=== PATIENT | male | born 1975 | race Caucasian/White ===

== ENCOUNTER 2017-04-12 00:51 | Emergency (ER) | payer BC ==
[2017-04-12] MEDS ORDERED: ASPIRIN 81 MG CHEWABLE TABLETS PO ONE (01:16)
--- NOTE | 2017-04-12 01:16 | PDOC ---
History of Present Illness - General Chief Complaint: Palpitations Stated Complaint: HEART PALPITATION - History of Present Illness Beta Arleen given by EMS (Core Measure): No Beta Arleen taken at Home (Core Measure): Yes (50 mg po) Past History - Past Medical History Allergies/Adverse Reactions: Allergies Allergy/AdvReac Type Severity Reaction Status Date / Time No Known Allergies Allergy Verified 11/07/15 08:02 Home Medications: Ambulatory Orders Apixaban [Eliquis -] 5 mg PO BID #60 tablet 01/08/15 Flecainide Acetate [Flecainide Acetate -] 100 mg PO BID #60 tablet 01/08/15 Metoprolol Succinate [Toprol XL -] 12.5 mg PO DAILY #0 01/08/15 Anemia: No Asthma: No Cancer: No Cardiac Disorders: Yes (a-fib) CVA: No COPD: No CHF: No Dementia: No Diabetes: No GI Disorders: No Disorders: Yes (renal calculi) HTN: Yes Hypercholesterolemia: No Kidney Stones: Yes Seizures: No Thyroid Disease: No - Surgical History Cardiac Surgery: No (cardioverted (2 shocks)) Orthopedic Surgery: Yes - Immunization History Immunization Up to Date: Yes - Psycho/Social/Smoking Cessation Hx Anxiety: No Suicidal Ideation: No Smoking Status: No Smoking History: Never smoked Have you smoked in the past 12 months: No Number of Cigarettes Smoked Daily: 0 Cigars Per Day: 0 Hx Alcohol Use: No Drug/Substance Use Hx: No Substance Use Type: None Hx Substance Use Treatment: No Cardiac Specific PMH - Complaint Specific PMHX Pacemaker: No *DC/Admit/Observation/Transfer Diagnosis at time of Disposition: [facility] - Discharge Dispostion Disposition: LEFT BEFORE R[facility] - Referrals Referrals: STAFF,NOT ON [Primary Care Provider] -
== END 2017-04-12 01:32 | disposition left against medical advice (07) ==
LOC: JER 00:51
DX: Z53.21 Procedure and treatment not carried out due to patient leaving prior to being seen by health care provider (principal)
CPT/HCPCS: 99281-25

== ENCOUNTER 2019-12-05 06:54 | Inpatient (IN) | payer SELFPAY ==
--- NOTE | 2019-12-05 07:32 | PDOC ---
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 EMS report BP 60s systolic, HR 180s with an rhythm of SVT. Pt unstable and shocked once with rhythm reverted to NSR. Pt reports being woken up out of sleep at 5 20 am with stated symptoms. Reports complete relief of symptoms after shock and feels much better. Pt states he has been in his normal state of health recently, no recent travel, sick contacts, infectious symptoms. Denies current CP, SOB, palpitations, abdominal pain, changes in bowel or bladder habits. Pt states he sees Dr. Luna in Cardiology, states he was on Eliquis over 2 years ago for A fib, no longer on AC. Past History - Past Medical History Allergies/Adverse Reactions: Allergies Allergy/AdvReac Type Severity Reaction Status Date / Time No Known Allergies Allergy Verified 12/14/19 00:40 Home Medications: Ambulatory Orders Apixaban [Eliquis -] 5 mg PO BID #30 tablet 12/07/19 Losartan Potassium [Cozaar -] 25 mg PO DAILY tablet 12/07/19 Sotalol HCl [Betapace -] 80 mg PO BID 30 Days #60 tablet 12/07/19 Anemia: No Asthma: No Cancer: No Cardiac Disorders: Yes (a-fib) CVA: No COPD: No CHF: No Dementia: No Diabetes: No GI Disorders: No Disorders: Yes (renal calculi) HTN: Yes Hypercholesterolemia: No Kidney Stones: Yes Seizures: No Thyroid Disease: No - Surgical History Cardiac Surgery: No (cardioverted (2 shocks)) Orthopedic Surgery: Yes - Immunization History Immunization Up to Date: Yes - Psycho Social/Smoking Cessation Hx Smoking Status: No Smoking History: Never smoked Have you smoked in the past 12 months: No Number of Cigarettes Smoked Daily: 0 Cigars Per Day: 0 Hx Alcohol Use: No Drug/Substance Use Hx: No Substance Use Type: None Hx Substance Use Treatment: No Review of Systems - Review of Systems Constitutional: Yes: Symptoms Reported HEENTM: Yes: Symptoms Reported Respiratory: Yes: Symptoms reported Cardiac (ROS): Yes: Symptoms Reported ABD/GI: Yes: Symptoms Reported : Yes: Symptoms Reported Musculoskeletal: Yes: Symptoms Reported Integumentary: Yes: Symptoms Reported Neurological: Yes: Symptoms reported *Physical Exam - Vital Signs Last Vital Signs Temp Pulse Resp BP Pulse Ox 97.4 F L 75 18 173/103 H 96 12/05/19 07:01 12/05/19 07:01 12/05/19 07:01 12/05/19 07:01 12/05/19 07:01 - Physical Exam General Appearance: Yes: Nourished, Appropriately Dressed. No: Apparent Distress HEENT: positive: EOMI Neck: positive: Supple. negative: Rigid Respiratory/Chest: positive: Lungs Clear, Normal Breath Sounds. negative: Respiratory Distress, Accessory Muscle Use, Rapid RR, Crackles, Rales, Rhonchi, Stridor, Wheezing Cardiovascular: positive: Regular Rhythm, Regular Rate, S1, S2. negative: Edema , JVD, Murmur Vascular Pulses: Dorsalis-Pedis (R): 4+, Doralis-Pedis (L): 4+ Gastrointestinal/Abdominal: positive: Flat, Soft. 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 EMS report BP 60s systolic, HR 180s with an rhythm of SVT. Pt unstable and shocked once with rhythm reverted to NSR. Pt reports being woken up out of sleep at 5 20 am with stated symptoms. Reports complete relief of symptoms after shock and feels much better. Pt states he has been in his normal state of health recently, no recent travel, sick contacts, infectious symptoms. Denies current CP, SOB, palpitations, abdominal pain, changes in bowel or bladder habits. Pt states he sees Dr. Luna in Cardiology, states he was on Eliquis over 2 years ago for A fib, no longer on AC. 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 Pt to be admitted Pt accepted to Tele obs Discharge - Discharge Information Problems reviewed: Yes Clinical Impression/Diagnosis: Palpitations, WPW (Rcwaq-Zylcrjhit-Evmli syndrome), Paroxysmal atrial fibrillation Condition: Stable Disposition: HOME - Admission Yes - Follow up/Referral - Patient Discharge Instructions - Post Discharge Activity
--- NOTE | 2019-12-05 07:47 | PDOC ---
Attending Attestation - Resident Resident Name: Keanu Villatoro - ED Attending Attestation I have performed the following: I have examined & evaluated the patient, The case was reviewed & discussed with the resident, I agree w/resident's findings & plan, Exceptions are as noted - HPI HPI: 43 yo M HTN, pafib, WPW BIBEMS after he had sudden onset of severe cp, palpitations, dizziness. EMS found to have SVT on EKG, shocked him en route, which converted him to sinus rhythm. Pt is known to Dr. Luna, who follows him for WPW. - Physicial Exam PE: GENERAL: Awake, alert, and fully oriented, in no acute distress HEAD: No signs of trauma EYES: PERRLA, EOMI, sclera anicteric, conjunctiva clear ENT: Auricles normal inspection, hearing grossly normal, nares patent, oropharynx clear without exudates. Moist mucosa NECK: Normal ROM, supple, no lymphadenopathy, JVD, or masses LUNGS: Breath sounds equal, clear to auscultation bilaterally. No wheezes, and no crackles HEART: Regular rate and rhythm, normal S1 and S2, no murmurs, rubs or gallops ABDOMEN: Soft, nontender, normoactive bowel sounds. No guarding, no rebound. No masses EXTREMITIES: Normal range of motion, no edema. No clubbing or cyanosis. No cords, erythema, or tenderness NEUROLOGICAL: Cranial nerves II through XII grossly intact. Normal speech, normal gait. Motor and sensation intact SKIN: Warm, dry, normal turgor, no rashes or lesions noted. - Medical Decision Making Pt currently asymptomatic, well-appearing. EKG NSR. Awaiting labs including trop. D/w cardiology, will evaluate.
[2019-12-05 07:58] LABS: BASO % 0.8 % (0-2.0); HEMATOCRIT 44.2 % (35.4-49); LYMPH % 31.8 % (8-40); MCH 29.3 pg (25.7-33.7); MCHC 33.9 g/dl (32.0-35.9); MEAN CELL VOLUME 86.4 fl (80-96); MEAN PLT VOLUME 8.9 fl (7.5-11.1); MONO % 8.1 % (3.8-10.2); NEUT % 58.3 % (42.8-82.8); PLATELET COUNT 235 K/MM3 (134-434); RBC 5.11 M/mm3 (4.00-5.60); RDW 14.5 % (11.9-15.9); WHITE BLOOD COUNT 6.5 K/mm3 (4.0-10.0)
[2019-12-05 08:14] LABS: INR 1.02 (0.83-1.09)
[2019-12-05 08:23] LABS: ALBUMIN 3.9 g/dl (3.4-5.0); BILIRUBIN,TOTAL 0.6 mg/dL (0.2-1); BLOOD UREA NITROGEN 12.2 mg/dL (7-18); CALCIUM 9.1 mg/dL (8.5-10.1); CREATININE 1.2 mg/dL (0.55-1.3); MAGNESIUM 2.4 mg/dL (1.8-2.4); POTASSIUM 4.3 mmol/L (3.5-5.1); TOT PROT 7.7 g/dl (6.4-8.2)
[2019-12-05 08:26] LABS: PHOSPHOROUS 2.4 mg/dL (2.5-4.9)
[2019-12-05] MEDS ORDERED: metoPROLOL SUCCINATE 25 MG TAB.SR.24H (FP) PO ONE ×2 (10:29→18:00)
[2019-12-05] MEDS ORDERED: LABETALOL HCL 5 MG/1 ML (100MG/20 ML VIAL) IVPUSH ONE (10:29)
--- NOTE | 2019-12-05 10:32 | CON.CARD ---
Consult Consult Specialty:: Cardiology Referred by:: Emergency Medicine Reason for Consultation:: Rapid afib post DCCV - History of Present Illness Chief Complaint: Recurrent chest pain, palpitations History of Present Illness: Patient is a 43 year old male with underlying history of paroxysmal AF , WPW on Apixaban and Flecainide and history of HTN and hypercholesterolemia last visit 03/10/2017 presented for sudden onset of severe cp, palpitations, dizziness, dyspnea. EMS found to have hemodynamically unstable SVT on EKG, shocked him en route, which converted him to sinus rhythm with abolition of sxs. - History Source History Provided By: Patient Limitations to Obtaining History: No Limitations - Past Medical History Cardio/Vascular: Yes: AFIB (Paroxysmal since .), HTN, Hyperlipdemia ( ) Renal/: Yes: Renal Calculi - Alcohol/Substance Use Hx Alcohol Use: No History of Substance Use: reports: None - Smoking History Smoking history: Never smoked Have you smoked in the past 12 months: No Aproximately how many cigarettes per day: 0 - Social History ADL: Independent History of Recent Travel: No Home Medications - Allergies Allergies/Adverse Reactions: Allergies Allergy/AdvReac Type Severity Reaction Status Date / Time No Known Allergies Allergy Verified 11/07/15 08:02 - Home Medications Home Medications: Ambulatory Orders Apixaban [Eliquis -] 5 mg PO BID #60 tablet 01/08/15 Flecainide Acetate [Flecainide Acetate -] 100 mg PO BID #60 tablet 01/08/15 Metoprolol Succinate [Toprol XL -] 12.5 mg PO DAILY #0 01/08/15 Review of Systems - Review of Systems Cardiovascular: reports: Chest Pain, Palpitations, Shortness of Breath Neurological: reports: Dizziness Vital Signs: Vital Signs Temperature 97.4 F L 12/05/19 07:01 Pulse Rate 71 12/05/19 09:15 Respiratory Rate 18 12/05/19 09:15 Blood Pressure 197/112 H 12/05/19 09:15 O2 Sat by Pulse Oximetry (%) 98 12/05/19 09:15 Constitutional: Yes: No Distress, Calm Neck: Yes: Supple Respiratory: Yes: Regular, CTA Bilaterally Gastrointestinal: Yes: Normal Bowel Sounds, Soft Cardiovascular: Yes: Regular Rate and Rhythm Heart Sounds: Yes: S1, S2 Edema: No - Other Data Labs, Other Data: CBC, BMP 12/05/19 07:15 12/05/19 07:15 INR, PTT INR 1.02 (0.83-1.09) 12/05/19 07:15 Troponin, BNP 12/05/19 07:15 Troponin I 0.03 Troponin, BNP 12/05/19 07:15 Troponin I 0.03 NSR @ 78 IVCD Ejection Fraction %: LVEF > or = 40 % Imaging - Results Chest X-ray: Report Reviewed (NAD) Problem List - Problems (1) Palpitations Code(s): R00.2 - PALPITATIONS (2) Paroxysmal atrial fibrillation Code(s): I48.0 - PAROXYSMAL ATRIAL FIBRILLATION (3) HLD (hyperlipidemia) Code(s): E78.5 - HYPERLIPIDEMIA, UNSPECIFIED Qualifiers: Hyperlipidemia type: unspecified Qualified Code(s): E78.5 - Hyperlipidemia , unspecified (4) HTN (hypertension) Code(s): I10 - ESSENTIAL (PRIMARY) HYPERTENSION Qualifiers: Hypertension type: essential hypertension Qualified Code(s): I10 - Essential (primary) hypertension (5) Rapid atrial fibrillation Code(s): I48.91 - UNSPECIFIED ATRIAL FIBRILLATION (6) Demand ischemia Code(s): I24.8 - OTHER FORMS OF ACUTE ISCHEMIC HEART DISEASE Assessment/Plan 1. Recurrent paroxysmal AF/flutter now in sinus rhythm post DCCV 2. Demand ischemia 3. HTN 4. Hypercholesterolemia 5. Elevated TSH PLAN: 1. Continue ASA 81 qd given low risk score 2. Continue Flecainide 100 bid for now and increase Toprol XL 50 qd, if continues to have recurrence of AF, may consider switching back to Sotalol. 3. If AF recurs or persistent, ablation may be considered 4. Check T3, free T4, f/u echo 5. Agree with observation. Thank you for consultative opportunity
[2019-12-05] MEDS ORDERED: LABETALOL HCL 5 MG/1 ML (200MG/40ML VIAL) IVPB ONE (11:15)
[2019-12-05] MEDS ORDERED: METOPROLOL TARTRATE 25 MG TABLET (FP) ONE (11:20)
--- NOTE | 2019-12-05 11:54 | EKG ---
Test Reason : Blood Pressure : / mmHG Vent. Rate : 078 BPM Atrial Rate : 078 BPM P-R Int : 198 ms QRS Dur : 124 ms QT Int : 384 ms P-R-T Axes : 046 -08 029 degrees QTc Int : 437 ms NORMAL SINUS RHYTHM NON-SPECIFIC INTRA-VENTRICULAR CONDUCTION DELAY BORDERLINE ECG WHEN COMPARED WITH ECG OF 08-NOV-2015 09:14, NO SIGNIFICANT CHANGE WAS FOUND Confirmed by MARIO GONZALES, ELLIOTT ([id number]) on 12/05/2019 11:54:25 AM Referred By: Confirmed By:ELLIOTT MARTIN MD
--- NOTE | 2019-12-05 15:23 | ECHO ---
Name: BARRETT CONTRERAS Exam:Adult Echocardiogram Study Date: 12/05/2019 02:42 PM Age: 43 yrs Height: 73 in Weight: 215 lb BSA: 2.2 m2 MMode/2D Measurements & Calculations IVSd: 1.1 cm Ao root diam: 3.1 cm LVIDd: 4.7 cm LA dimension: 3.5 cm LVIDs: 3.4 cm LVPWd: 1.2 cm LVPWs: 1.5 cm EDV(Teich): 104.9 ml ESV(Teich): 47.4 ml LVOT diam: 2.3 cm LAV (MOD-bp): 62.0 ml RV S Isidoro: 9.2 cm/sec Doppler Measurements & Calculations MV E max isidoro: 66.6 cm/sec Ao V2 max: 125.6 cm/sec MV A max isidoro: 53.8 cm/sec Ao max P.3 mmHg MV E/A: 1.2 JULIETTE(V,D): 2.8 cm2 MV dec time: 0.23 sec LV V1 max P.8 mmHg MR max isidoro: 551.6 cm/sec LV V1 max: 83.4 cm/sec MR max P.7 mmHg TR max isidoro: 184.6 cm/sec PA V2 max: 106.6 cm/sec TR max P.6 mmHg PA max P.6 mmHg Med Peak E' Isidoro: 5.3 cm/sec Med E/e': 12.7 Lat Peak E' Isidoro: 6.9 cm/sec Lat E/e': 9.6 Procedure A complete two-dimensional transthoracic echocardiogram was performed (2D, M-mode, Doppler and color flow Doppler). Left Ventricle The left ventricle is normal in size. Left ventricular systolic function is mildly reduced. Ejection Fraction = 45-50%. There is mild global hypokinesis of the left ventricle. Right Ventricle The right ventricle is normal in size and function. Atria Normal left and right atrial size and function. Mitral Valve There is no mitral regurgitation noted. Tricuspid Valve There is trace tricuspid regurgitation. There was insufficient TR detected to calculate RV systolic p ressure. Aortic Valve The aortic valve is trileaflet. No hemodynamically significant valvular aortic stenosis. No aortic regurgitation is present. Pulmonic Valve There is no pulmonic valvular regurgitation. Great Vessels The aortic root is normal size. Pericardium/Pleura There is no pericardial effusion. Interpretation Summary Left ventricular systolic function is mildly reduced. There is mild global hypokinesis of the left ventricle. The right ventricle is normal in size and function. There is trace tricuspid regurgitation. MD Jose Foster 12/05/2019 03:23 PM
--- NOTE | 2019-12-05 17:25 | HP ---
Admitting History and Physical - Primary Care Physician PCP: Zara Pope - Admission Chief Complaint: palpitation/chest pain/lightheadedness History of Present Illness: woke up this am around 5.30 with severe palpitations, lightheadedness, chest pain and some dyspnea. took his flecainide and metoprolol immediately and called 911. ems found him in SVT with hypotension ; dc cardioverted him en route. he returned to normal sinus rhythm. since then BP has been elevated. clinically he feels well, no chest pain, no palpitations, no dyspnea. describes similar episode about a month ago, that resolved spontaneously. has been compliant with his medication, denies recent illness. History Source: Patient Limitations to Obtaining History: No Limitations - Past Medical History Cardiovascular: Yes: AFIB (Paroxysmal since .), HTN, Hyperlipdemia ( ) Renal/: Yes: Renal Calculi - Smoking History Smoking history: Never smoked Have you smoked in the past 12 months: No Aproximately how many cigarettes per day: 0 - Alcohol/Substance Use Hx Alcohol Use: No History of Substance Use: reports: None - Social History Usual Living Arrangement: Yes: With Spouse ADL: Independent History of Recent Travel: No Home Medications - Allergies Allergies/Adverse Reactions: Allergies Allergy/AdvReac Type Severity Reaction Status Date / Time No Known Allergies Allergy Verified 11/07/15 08:02 - Home Medications Home Medications: Ambulatory Orders Apixaban [Eliquis -] 5 mg PO BID #60 tablet 01/08/15 Flecainide Acetate [Flecainide Acetate -] 100 mg PO BID #60 tablet 01/08/15 Metoprolol Succinate [Toprol XL -] 12.5 mg PO DAILY #0 01/08/15 Home Medications (free text): has not been on eliquis for years. takes baby asa intermittently Family Medical History Family Hx Cardiac Disorders: Mother (HTN) Review of Systems - Review of Systems Constitutional: reports: No Symptoms Eyes: reports: No Symptoms HENT: reports: No Symptoms Neck: reports: No Symptoms Cardiovascular: reports: No Symptoms Respiratory: reports: No Symptoms Gastrointestinal: reports: No Symptoms Genitourinary: reports: No Symptoms Musculoskeletal: reports: No Symptoms Integumentary: reports: No Symptoms Neurological: reports: No Symptoms Endocrine: reports: No Symptoms Hematology/Lymphatic: reports: No Symptoms Psychiatric: reports: No Symptoms Physical Examination Vital Signs: Vital Signs Temperature 98.8 F 12/05/19 16:10 Pulse Rate 63 12/05/19 16:10 Respiratory Rate 18 12/05/19 16:10 Blood Pressure 163/95 12/05/19 16:10 O2 Sat by Pulse Oximetry (%) 99 12/05/19 16:10 Constitutional: Yes: Well Nourished, No Distress, Calm Eyes: Yes: Conjunctiva Clear, EOM Intact HENT: Yes: Normocephalic Neck: Yes: Trachea Midline Cardiovascular: Yes: Regular Rate and Rhythm Respiratory: Yes: CTA Bilaterally Gastrointestinal: Yes: Normal Bowel Sounds, Soft Musculoskeletal: Yes: WNL Extremities: Yes: WNL Edema: No Peripheral Pulses WNL: Yes Integumentary: Yes: WNL Neurological: Yes: WNL ...Motor Strength: WNL Psychiatric: Yes: WNL Labs: CBC, BMP 12/05/19 07:15 12/05/19 07:15 Abnormal Lab Results 12/05/19 12/05/19 12/05/19 07:15 07:15 10:07 Anion Gap 5 L Phosphorus 2.4 L Alkaline Phosphatase 136 H Troponin I 0.30 H TSH 9.20 H D Imaging - Results Chest X-ray: Report Reviewed EKG: Report Reviewed Other: Report Reviewed (echo) Problem List - Problems (1) Demand ischemia Code(s): I24.8 - OTHER FORMS OF ACUTE ISCHEMIC HEART DISEASE (2) Palpitations Code(s): R00.2 - PALPITATIONS (3) Paroxysmal atrial fibrillation Code(s): I48.0 - PAROXYSMAL ATRIAL FIBRILLATION (4) HLD (hyperlipidemia) Code(s): E78.5 - HYPERLIPIDEMIA, UNSPECIFIED Qualifiers: Hyperlipidemia type: unspecified Qualified Code(s): E78.5 - Hyperlipidemia , unspecified (5) HTN (hypertension) Code(s): I10 - ESSENTIAL (PRIMARY) HYPERTENSION Qualifiers: Hypertension type: essential hypertension Qualified Code(s): I10 - Essential (primary) hypertension Assessment/Plan flecainide 100 mg po bid metoprolol 50 asa 81 mg [id number] score is 1 monitor overnight trend troponin-likely demand ischemia consult appreciated
[2019-12-05] MEDS ORDERED: FLECAINIDE ACETATE 100 MG TABLET PO SCH ×2 (22:00)
[2019-12-05] MEDS ORDERED: APIXABAN 5 MG TABLET ONE (22:32)
[2019-12-05] MEDS: SOTALOL HCL 80 MG TABLET (FP) PO SCH (22:59)
[2019-12-05] MEDS: APIXABAN 5 MG TABLET PO SCH (22:59)
--- NOTE | 2019-12-06 08:49 | PN ---
Progress Note (short form) - Note Progress Note: CBC, BMP troponin downtrending 12/05/19 07:15 12/05/19 07:15 Vital Signs Period Temp Pulse Resp BP Sys/Singh Pulse Ox Last 24 Hr 98.4 F-99.0 F 50-72 15-18 134-197/72-112 96-99 s1s2 rrr lungs cta abd soft NT, pos.bs no edema no complaints, feels well SVT sp DCCV in ems parox afib HTN echo showed mild cardiomyopathy d/w d.Liam reload with sotalol, monitor for 48 hours eliquis cozaar for bp and cmp tentative dc tomorrow afternoon Problem List - Problems (1) Demand ischemia Code(s): I24.8 - OTHER FORMS OF ACUTE ISCHEMIC HEART DISEASE (2) Palpitations Code(s): R00.2 - PALPITATIONS (3) Paroxysmal atrial fibrillation Code(s): I48.0 - PAROXYSMAL ATRIAL FIBRILLATION (4) HLD (hyperlipidemia) Code(s): E78.5 - HYPERLIPIDEMIA, UNSPECIFIED Qualifiers: Hyperlipidemia type: unspecified Qualified Code(s): E78.5 - Hyperlipidemia , unspecified (5) HTN (hypertension) Code(s): I10 - ESSENTIAL (PRIMARY) HYPERTENSION Qualifiers: Hypertension type: essential hypertension Qualified Code(s): I10 - Essential (primary) hypertension
--- NOTE | 2019-12-06 09:54 | PN ---
Progress Note, Physician History of Present Illness: Denies recurrence of symptomatic PAF with RVR now on sotalol. - Current Medication List Current Medications: Active Medications Apixaban (Eliquis -) 5 mg PO BID [facility] Last Admin: 12/05/19 22:59 Dose: 5 mg Losartan Potassium (Cozaar -) 25 mg PO DAILY [facility] Sotalol HCl (Betapace -) 80 mg PO BID [facility] Last Admin: 12/05/19 22:59 Dose: 80 mg - Objective Vital Signs: Vital Signs Temperature 98.8 F 12/06/19 06:06 Pulse Rate 50 L 12/06/19 06:06 Respiratory Rate 15 12/06/19 06:06 Blood Pressure 134/85 12/06/19 06:06 O2 Sat by Pulse Oximetry (%) 99 12/06/19 06:06 Constitutional: Yes: No Distress, Calm, Thin Neck: Yes: Supple Cardiovascular: Yes: Regular Rate and Rhythm Respiratory: Yes: Regular, CTA Bilaterally Gastrointestinal: Yes: Normal Bowel Sounds, Soft Edema: No Labs: CBC, BMP 12/05/19 07:15 12/05/19 07:15 INR, PTT INR 1.02 (0.83-1.09) 12/05/19 07:15 - ....Imaging EKG: Report Reviewed (SB @ 51 min criteria LVH QTc 425 msec Tele: No recurrence of PAF) Problem List - Problems (1) Palpitations Code(s): R00.2 - PALPITATIONS (2) Paroxysmal atrial fibrillation Code(s): I48.0 - PAROXYSMAL ATRIAL FIBRILLATION (3) HLD (hyperlipidemia) Code(s): E78.5 - HYPERLIPIDEMIA, UNSPECIFIED Qualifiers: Hyperlipidemia type: unspecified Qualified Code(s): E78.5 - Hyperlipidemia , unspecified (4) HTN (hypertension) Code(s): I10 - ESSENTIAL (PRIMARY) HYPERTENSION Qualifiers: Hypertension type: essential hypertension Qualified Code(s): I10 - Essential (primary) hypertension (5) Rapid atrial fibrillation Code(s): I48.91 - UNSPECIFIED ATRIAL FIBRILLATION (6) Demand ischemia Code(s): I24.8 - OTHER FORMS OF ACUTE ISCHEMIC HEART DISEASE (7) Systolic dysfunction without heart failure Code(s): I51.89 - OTHER ILL-DEFINED HEART DISEASES Assessment/Plan 12/05/2019 Echo: Mildly decreased LV EF 45-50%, normal RV size and fxn, tr TR. 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 Given structural heart disease, will need to d/c flecanide and change Toprol XL to sotalol 80 bid with monitor QTc for 2 days, start losartan 25 qd. Change ASA to Eliquis 5 bid. 1. Recurrent paroxysmal AF/flutter now in sinus rhythm post DCCV 2. Demand ischemia 3. HTN heart disease 4. Hypercholesterolemia 5. Elevated TSH PLAN: 1. Changed ASA 81 qd to Eliquis 5 bid given mild cardiomyopathy 2. Changed Flecainide 100 bid to sotalol 80 bid with check QTc and losartan 25 qd given mild cardiomyopathy 3. If AF recurs or persistent despite sotalol, ablation may be considered 4. Check T3, free T4, trops downtrending 5. D/c planning in AM, emphasized importance of compliance with medications and f/u
[2019-12-06] MEDS: APIXABAN 5 MG TABLET PO SCH ×2 (10:00→21:16)
[2019-12-06] MEDS ORDERED: ASPIRIN 81 MG CHEWABLE TABLETS PO SCH (10:00)
[2019-12-06] MEDS: LOSARTAN POTASSIUM 25 MG TABLET PO SCH (10:00)
[2019-12-06] MEDS: SOTALOL HCL 80 MG TABLET (FP) PO SCH ×2 (10:53→21:16)
--- NOTE | 2019-12-06 13:17 | EKG ---
Test Reason : Blood Pressure : / mmHG Vent. Rate : 051 BPM Atrial Rate : 051 BPM P-R Int : 186 ms QRS Dur : 114 ms QT Int : 462 ms P-R-T Axes : 010 -11 001 degrees QTc Int : 425 ms SINUS BRADYCARDIA MINIMAL VOLTAGE CRITERIA FOR LVH, MAY BE NORMAL VARIANT NONSPECIFIC ST ABNORMALITY WHEN COMPARED WITH ECG OF 05-DEC-2019 18:23, NO SIGNIFICANT CHANGE WAS FOUND Confirmed by HAROON ERICKSON MD ([id number]) on 12/06/2019 1:17:28 PM Referred By: OLGAN CABRAL Confirmed By:HAROON ERICKSON MD
--- NOTE | 2019-12-06 13:46 | EKG ---
Test Reason : Blood Pressure : / mmHG Vent. Rate : 071 BPM Atrial Rate : 071 BPM P-R Int : 182 ms QRS Dur : 114 ms QT Int : 418 ms P-R-T Axes : 006 -09 019 degrees QTc Int : 454 ms NORMAL SINUS RHYTHM NORMAL ECG WHEN COMPARED WITH ECG OF 05-DEC-2019 12:17, NO SIGNIFICANT CHANGE WAS FOUND Confirmed by HAROON ERICKSON MD ([id number]) on 12/06/2019 1:46:18 PM Referred By: Confirmed By:HAROON ERICKSON MD
--- NOTE | 2019-12-06 13:51 | EKG ---
Test Reason : Blood Pressure : / mmHG Vent. Rate : 071 BPM Atrial Rate : 071 BPM P-R Int : 184 ms QRS Dur : 110 ms QT Int : 388 ms P-R-T Axes : 048 000 014 degrees QTc Int : 421 ms NORMAL SINUS RHYTHM NONSPECIFIC INTRAVENTRICULAR CONDUCTION DEFECT WHEN COMPARED WITH ECG OF 05-DEC-2019 07:05, NO SIGNIFICANT CHANGE WAS FOUND Confirmed by HAROON ERICKSON MD ([id number]) on 12/06/2019 1:50:39 PM Referred By: Confirmed By:HAROON ERICKSON MD
[2019-12-06 16:45] VITALS: BMI 28.1
[2019-12-07 07:08] VITALS: TEMP 97.5
[2019-12-07 08:08] VITALS: BP 124/61
--- NOTE | 2019-12-07 09:16 | PN ---
Progress Note, Physician Chief Complaint: Pt A&Ox3; asymptomatic. History of Present Illness: Patient is a 43 [facility] [place] [facility] 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 EMS found to have hemodynamically unstable SVT on EKG, shocked him en route, which converted him to sinus rhythm with abolition of sxs. - Current Medication List Current Medications: Active Medications Apixaban (Eliquis -) 5 mg PO BID [facility] Last Admin: 12/06/19 21:16 Dose: 5 mg Losartan Potassium (Cozaar -) 25 mg PO DAILY [facility] Last Admin: 12/06/19 10:00 Dose: 25 mg Sotalol HCl (Betapace -) 80 mg PO BID [facility] Last Admin: 12/06/19 21:16 Dose: 80 mg - Objective Vital Signs: Vital Signs Temperature 97.5 F L 12/07/19 08:05 Pulse Rate 52 L 12/07/19 08:05 Respiratory Rate 18 12/07/19 08:05 Blood Pressure 124/61 12/07/19 08:05 O2 Sat by Pulse Oximetry (%) 96 12/07/19 08:00 Constitutional: Yes: Well Nourished, No Distress Eyes: Yes: WNL HENT: Yes: WNL Neck: Yes: WNL Cardiovascular: Yes: Regular Rate and Rhythm Respiratory: Yes: WNL Gastrointestinal: Yes: WNL ...Rectal Exam: Yes: Deferred Genitourinary: Yes: WNL Breast(s): Yes: WNL Musculoskeletal: Yes: WNL Extremities: Yes: WNL Edema: No Peripheral Pulses WNL: Yes Integumentary: Yes: WNL Neurological: Yes: WNL ...Motor Strength: WNL Psychiatric: Yes: WNL Labs: CBC, BMP 12/05/19 07:15 12/05/19 07:15 INR, PTT INR 1.02 (0.83-1.09) 12/05/19 07:15 - ....Imaging Chest X-ray: Image Reviewed EKG: Image Reviewed (NSR; normal QTC) Problem List - Problems (1) Overweight (BMI 25.0-29.9) Code(s): E66.3 - OVERWEIGHT (2) Paroxysmal atrial fibrillation Assessment/Plan: Sotalol restarted at 80 mg bid (mild LV dysfunction-->discontinue flecainide). On losartan 25 mg daily. On apixaban. Electrolytes WNL. Telemetry: NSR; sinus bradycardia to 39 bpm overnight. Await EKG: if QTC not prolonged, pt may be followed as outpatient. Code(s): I48.0 - PAROXYSMAL ATRIAL FIBRILLATION (3) WPW (Pgwac-Jznytolee-Vmtyd syndrome) Assessment/Plan: see "PAF". Code(s): I45.6 - PRE-EXCITATION SYNDROME (4) HLD (hyperlipidemia) Assessment/Plan: Markedly elevated LDL cholesterol in 2018; await repeat levels. TFTs WNL. Start statin if needed. Pt has lost 30 lbs in the past year by changing diet; he plans to increase daily exercise. Code(s): E78.5 - HYPERLIPIDEMIA, UNSPECIFIED Qualifiers: Hyperlipidemia type: unspecified Qualified Code(s): E78.5 - Hyperlipidemia , unspecified (5) HTN (hypertension) Code(s): I10 - ESSENTIAL (PRIMARY) HYPERTENSION Qualifiers: Hypertension type: essential hypertension Qualified Code(s): I10 - Essential (primary) hypertension
[2019-12-07] MEDS: APIXABAN 5 MG TABLET PO SCH (09:47)
[2019-12-07] MEDS: LOSARTAN POTASSIUM 25 MG TABLET PO SCH (09:48)
[2019-12-07] MEDS: SOTALOL HCL 80 MG TABLET (FP) PO SCH (09:49)
--- NOTE | 2019-12-07 13:14 | EKG ---
Test Reason : Blood Pressure : / mmHG Vent. Rate : 056 BPM Atrial Rate : 056 BPM P-R Int : 162 ms QRS Dur : 102 ms QT Int : 420 ms P-R-T Axes : 042 -09 -05 degrees QTc Int : 405 ms SINUS BRADYCARDIA OTHERWISE NORMAL ECG WHEN COMPARED WITH ECG OF 06-DEC-2019 09:00, NO SIGNIFICANT CHANGE WAS FOUND Confirmed by ELLIOTT MARTIN MD ([id number]) on 12/07/2019 1:13:52 PM Referred By: Augustine AGUIRRE Confirmed By:ELLIOTT MARTIN MD
[2019-12-07 14:30] VITALS: PULSE 59
--- NOTE | 2019-12-10 08:29 | DS ---
Physical Examination Vital Signs: Vital Signs Temperature 97.5 F L 12/07/19 08:05 Pulse Rate 59 L 12/07/19 14:00 Respiratory Rate 18 12/07/19 08:05 Blood Pressure 124/61 12/07/19 08:05 O2 Sat by Pulse Oximetry (%) 96 12/07/19 08:00 Labs: CBC, BMP 12/05/19 07:15 12/05/19 07:15 Discharge Summary Problems reviewed: Yes Reason For Visit: PALPITATIONS,MELCHOR PARKINSONS WHITE PATTERN Hospital Course: 43 yo man with h/o parox.afib and HTN admitted after SVT sp DCCV in ems serial cardiac enzymes shoiwed slight bump c/w demand ischemia, trended down echo showed mild cardiomyopathy cardiac medications were adjusted reloaded with sotalol, monitored for 48 hours started hesham gomez for bp and cmp will need to follow up as oupt Condition: Stable - Instructions Diet, Activity, Other Instructions: Cardiac diet. Activity as tolerated. Referrals: Zara Pope MD [Primary Care Provider] - Disposition: HOME - Home Medications Comprehensive Discharge Medication List: Ambulatory Orders Apixaban [Eliquis -] 5 mg PO BID #60 tablet 01/08/15 Apixaban [Eliquis -] 5 mg PO BID #30 tablet 12/07/19 Losartan Potassium [Cozaar -] 25 mg PO DAILY tablet 12/07/19 Sotalol HCl [Betapace -] 80 mg PO BID 30 Days #60 tablet 12/07/19
== END 2019-12-07 15:32 | disposition home or self-care (01) | DRG 201 ==
LOC: JER 06:54 → JERBED 13:56 → OBSVTOIN 12-06 08:48 → J4W 12-06 14:32
PROVIDERS: ADMIT Internal Medicine; ATTEND Internal Medicine
DX: I47.1 Supraventricular tachycardia (principal); I45.6 Pre-excitation syndrome; R07.89 Other chest pain; I10 Essential (primary) hypertension; R00.2 Palpitations; E78.00 Pure hypercholesterolemia, unspecified; I24.8 Other forms of acute ischemic heart disease; I42.8 Other cardiomyopathies; I48.92 Unspecified atrial flutter; R00.1 Bradycardia, unspecified; I11.9 Hypertensive heart disease without heart failure; E66.3 Overweight; Z68.25 Body mass index [BMI] 25.0-25.9, adult; Z87.442 Personal history of urinary calculi
CPT/HCPCS: 36415; 71045-TC-FY; 80053; 80061; 82550; 83605; 83721; 83735; 84100; 84439; 84443; 84480; 84484; 85025; 85610; 85730; 86850; 86900; 86901; 93005; 93010; 93306-TC; 99285-25; G0378

== ENCOUNTER 2019-12-14 00:19 | Inpatient (IN) | payer OTHER ==
--- NOTE | 2019-12-14 00:27 | PDOC ---
Attending Attestation - Resident Resident Name: Oj Justice - ED Attending Attestation I have performed the following: I have examined & evaluated the patient, The case was reviewed & discussed with the resident, I agree w/resident's findings & plan - HPI HPI: 12/14/19 01:13 Pt comes with WPW and paroxysmal afib hitory; today presents with tachycardia 12/14/19 01:14 Pt was at a family reunion and may be stressed from that as per niece. Pt doesn't smoke or drink alcohol or use drugs, He is complaint with his sotalol and all meds, He was here 2 weeks ago. - Physicial Exam PE: 12/14/19 01:14 Tachy irregularly irregulat No chest pain No SOB; lungs CTA bilat abd soft NT ND no flank pain no pitting edema of the legs. - Medical Decision Making 12/14/19 01:13 IV started by myself; procainamide 2000mg IV load at 50mg/min. 1000 mg going now Another 1000mg coming from pharmacy 1L NSS running. 12/14/19 03:15 EKG#1 afib; ?WPW; PVCs EKG#2 afib; ?WPW EKG#3 NSR Pt will remain on procainamide drip and he will be admitted to the ICU Likely needs ablation of his heart accessory pathway Labs normal cardiac enzyme normal
--- NOTE | 2019-12-14 00:29 | PDOC ---
History of Present Illness - General Chief Complaint: Chest Pain Stated Complaint: CHEST PAIN Time Seen by Provider: 12/14/19 00:24 History Source: Patient Exam Limitations: No Limitations, Language Barrier - History of Present Illness Initial Comments: Liam Sow is a 43 yo M w a hx of WPW recently started on Sotalol and apixaban, paroxysmal AF, HTN, HCL, obesity recently discharged from the hospital one week ago who presents to the ER with chest pain, lightheadedness, and palpitations. Upon presentation to the ER the patient was in SVT w/ aberent response at a rate of 160. He was promptly placed on a monitor, defibrilater pads placed on patient, and a procainamide drip was started. Patient states earlier today while he was at a [employer] party around 12:10 in the morning. He denies drinking alcohol or using other substances at the alliance party. Pain is now resolved in the ER and the patient denies current SOB, CP, or other symptoms. He presented bc last time he felt chest pain like this he had a mild CA. Cards: Cheryl PCP: Zara Pope PSH: None reported Allergies: NKA, NKDA Social Hx: Denies smoking, drinking, or other substance usage. Past History - Past Medical History Allergies/Adverse Reactions: Allergies Allergy/AdvReac Type Severity Reaction Status Date / Time No Known Allergies Allergy Verified 12/14/19 00:40 Home Medications: Ambulatory Orders Apixaban [Eliquis -] 5 mg PO BID #30 tablet 12/07/19 Losartan Potassium [Cozaar -] 25 mg PO DAILY tablet 12/07/19 Sotalol HCl [Betapace -] 80 mg PO BID 30 Days #60 tablet 12/07/19 Anemia: No Asthma: No Cancer: No Cardiac Disorders: Yes (Paroxysmal A-Fib) CVA: No COPD: No CHF: No Dementia: No Diabetes: No GI Disorders: No Disorders: Yes (Renal stones) HTN: Yes Hypercholesterolemia: Yes Kidney Stones: Yes Seizures: No Thyroid Disease: Yes (Elevated TSH) - Surgical History Cardiac Surgery: No (Cardioverted (2 shocks) - 12/06/2019) Orthopedic Surgery: Yes - Immunization History Immunization Up to Date: Yes - Psycho Social/Smoking Cessation Hx Smoking Status: No Smoking History: Never smoked Have you smoked in the past 12 months: No Number of Cigarettes Smoked Daily: 0 Cigars Per Day: 0 Hx Alcohol Use: No Drug/Substance Use Hx: No Substance Use Type: None Hx Substance Use Treatment: No Review of Systems - Review of Systems Able to Perform ROS?: Yes Comments:: CONSTITUTIONAL: Absent: fever, no chills, no fatigue EYES: Absent: visual changes ENT: Absent: ear pain, no sore throat CARDIOVASCULAR: Present: chest pain, palpitations RESPIRATORY: Absent: cough, no SOB GI: Absent: abdominal pain, no nausea, no vomiting, no constipation, no diarrhea GENITOURINARY: Absent: dysuria, no frequency, no hematuria MUSKULOSKELETAL: Absent: back pain, no arthralgia, no myalgia SKIN: Absent: rash NEURO: Absent: headache *Physical Exam - Physical Exam GENERAL: Well-appearing, well-nourished. Moderate distress. HEENT: Normocephalic, atraumatic. PERRL, EOM intact. CARDIOVASCULAR: Tachycardic rate, irregular rhythm. Normal S1, S2. PULMONARY: No evidence of respiratory distress. Lungs clear to auscultation bilaterally. No wheezing, rales or rhonchi. ABDOMEN: Soft, non-distended, non-tender. EXTREMITIES: Normal ROM in all four extremities. No gross deformities. SKIN: Warm, dry. No rash NEUROLOGICAL: No focal neurological deficits. ED Treatment Course - LABORATORY CBC & Chemistry Diagram: 12/14/19 00:46 12/14/19 00:46 Medical Decision Making - Medical Decision Making Liam Sow is a 43 yo M w a hx of WPW recently started on Sotalol and apixaban, paroxysmal AF, HTN, HCL, obesity recently discharged from the hospital one week ago who presents to the ER with chest pain, lightheadedness, and palpitations. Upon presentation to the ER the patient was in SVT w/ aberent response at a rate of 160. He was promptly placed on a monitor, defibrilater pads placed on patient, and a procainamide drip was started. Patient states earlier today while he was at a [employer] party around 12:10 in the morning. He denies drinking alcohol or using other substances at the alliance party. Pain is now resolved in the ER and the patient denies current SOB, CP, or other symptoms. He presented bc last time he felt chest pain like this he had a mild CA. 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 Plan: Chest pain workup with labs, defibrilator pads placed, IVF bolus given, procainamide drip started, Cardiology consulted Labs: Trop negative Repeat EKG: NS rate 67, narrow complexes with delta waves, normal axis, no hypertrophy, no ST elevations or depressions, QTc 435 Disposition: ICU bc he is on a procainamide drip Discharge - Discharge Information Problems reviewed: Yes Clinical Impression/Diagnosis: Chest pain Qualifiers: Chest pain type: unspecified Qualified Code(s): R07.9 - Chest pain, unspecified Condition: Stable - Admission Yes - Follow up/Referral - Patient Discharge Instructions - Post Discharge Activity
[2019-12-14] MEDS ORDERED: SODIUM CHLORIDE 1,000 ML IV STA (00:34)
[2019-12-14] MEDS ORDERED: ASPIRIN 81 MG CHEWABLE TABLETS PO ONE (00:34)
[2019-12-14 00:42] VITALS: BMI 34.2
[2019-12-14] MEDS ORDERED: ASPIRIN 81 MG CHEWABLE TABLETS ONE (00:47)
[2019-12-14] MEDS ORDERED: PROCAINAMIDE HCL 1,000 MG in DEXTROSE 5%-WATER - 48 ML IVPB ONE ×3 (00:51→01:08)
[2019-12-14] MEDS ORDERED: SOTALOL HCL 80 MG TABLET (FP) PO ONE (01:03)
[2019-12-14] MEDS ORDERED: PROCAINAMIDE HCL IVPB SCH (01:30)
[2019-12-14] MEDS ORDERED: WATER IVPB SCH (01:30)
[2019-12-14] MEDS ORDERED: DEXTROSE 5% IVPB SCH (01:30)
[2019-12-14 02:05] LABS: BASO % 0.8 % (0-2.0); EOS % 0.8 % (0-4.5); HEMATOCRIT 46.6 % (35.4-49); LYMPH % 37.1 % (8-40); MCH 29.7 pg (25.7-33.7); MCHC 34.4 g/dl (32.0-35.9); MEAN CELL VOLUME 86.5 fl (80-96); MEAN PLT VOLUME 9.1 fl (7.5-11.1); MONO % 9.3 % (3.8-10.2); PLATELET COUNT 270 K/MM3 (134-434); RBC 5.39 M/mm3 (4.00-5.60); RDW 14.1 % (11.9-15.9)
[2019-12-14 02:33] LABS: ALBUMIN 3.8 g/dl (3.4-5.0); BILIRUBIN,TOTAL 0.4 mg/dL (0.2-1); BLOOD UREA NITROGEN 16.3 mg/dL (7-18); CALCIUM 8.8 mg/dL (8.5-10.1); CREATININE 1.1 mg/dL (0.55-1.3); POTASSIUM 3.6 mmol/L (3.5-5.1); TOT PROT 7.8 g/dl (6.4-8.2)
[2019-12-14 03:11] LABS: INR 1.18 (0.83-1.09); PROTHROMBIN TIME (PATIENT) 13.9 SEC (9.7-13.0)
[2019-12-14 03:13] LABS: ACTIVATED PTT 35.8 SECONDS (25.2-36.5)
--- NOTE | 2019-12-14 03:38 | CONSULT ---
Consultation: REQUESTING PROVIDER: CONSULT REQUEST: We have been asked to medically evaluate this patient for Wollf Parkinson White syndrome on procainamide drip. HISTORY OF PRESENT ILLNESS: 43 y.o. M PMH HTN, A-fib on eliquis, HLD. recent admission 12/05-12/10/2019 for chest pain found to have SVTs s/p dc cardioversion by EMS. Patient presents today from home, says he was lying in bed & felt sudden onset palpitations & 2/10 chest pain. When he came to ED pt was found to be in a-fib w/ RVR, tachy to 160s, delta waves seen; procainamide drip initiated w/ resolution of tachycardia. On last admission the patient was started on eliquis, sotalol (flecainide & ASA d/c'd). The patient recently followed up w/ outpatient echocardiograph tech Dr. Luna 3 days ago and as per patient has been well controlled on new medication regimen. REVIEW OF SYSTEMS: chest pain, palpitations, irregular heart rate PHYSICAL EXAMINATION Vital Signs - 24 hr 12/14/19 12/14/19 12/14/19 00:25 00:30 01:00 Temperature 98.0 F Pulse Rate 138 H Pulse Rate [ 141 H Left Radial] Respiratory 22 H 17 Rate Blood Pressure 170/100 Blood Pressure 159/99 [Right Arm] O2 Sat by Pulse 98 98 100 Oximetry (%) 12/14/19 01:30 Temperature Pulse Rate Pulse Rate [ 71 Left Radial] Respiratory 18 Rate Blood Pressure Blood Pressure 150/93 [Right Arm] O2 Sat by Pulse 97 Oximetry (%) GENERAL: Awake, alert, and fully oriented, in no acute distress. HEENT: NCAT. No JVD. LUNGS: Breath sounds equal, clear to auscultation bilaterally. No wheezes, and no crackles. No accessory muscle use. HEART: Irregular rate and rhythm, normal S1 and S2 without murmurs. ABDOMEN: Soft, nontender, not distended, normoactive bowel sounds. EXTREMITIES: no peripheral edema PSYCHIATRIC: Cooperative. Good eye contact. Appropriate mood and affect. SKIN: Warm, dry Laboratory Results - last 24 hr 12/14/19 12/14/19 12/14/19 00:46 00:46 00:46 WBC 9.0 RBC 5.39 Hgb 16.0 Hct 46.6 MCV 86.5 MCH 29.7 MCHC 34.4 RDW 14.1 Plt Count 270 MPV 9.1 Absolute Neuts (auto) 4.7 Neutrophils % 52.0 Lymphocytes % 37.1 Monocytes % 9.3 Eosinophils % 0.8 Basophils % 0.8 Nucleated RBC % 0 PT with INR 13.90 H INR 1.18 H PTT (Actin FS) 35.8 Sodium Potassium Chloride Carbon Dioxide Anion Gap BUN Creatinine Est GFR (CKD-EPI)AfAm Est GFR (CKD-EPI)NonAf Random Glucose Calcium Magnesium Total Bilirubin AST ALT Alkaline Phosphatase Creatine Kinase 107 Troponin I < 0.02 Total Protein Albumin 12/14/19 00:46 WBC RBC Hgb Hct MCV MCH MCHC RDW Plt Count MPV Absolute Neuts (auto) Neutrophils % Lymphocytes % Monocytes % Eosinophils % Basophils % Nucleated RBC % PT with INR INR PTT (Actin FS) Sodium 140 Potassium 3.6 Chloride 105 Carbon Dioxide 28 Anion Gap 7 L BUN 16.3 Creatinine 1.1 Est GFR (CKD-EPI)AfAm 93.47 Est GFR (CKD-EPI)NonAf 80.64 Random Glucose 92 Calcium 8.8 Magnesium 2.0 Total Bilirubin 0.4 AST 34 ALT 36 Alkaline Phosphatase 146 H Creatine Kinase Troponin I Total Protein 7.8 Albumin 3.8 Current Medications Apixaban (Eliquis -) 5 mg PO BID [facility] Chlorhexidine Gluconate (Hibiclens For Decolonization -) 1 applic TP HS [facility] Procainamide HCl 2,000 mg/ (Dextrose) 500 mls @ 30 mls/hr IVPB TITR [facility]; Protocol Last Admin: 12/14/19 01:56 Dose: 2 mg/min, 30 mls/hr Losartan Potassium (Cozaar -) 25 mg PO DAILY [facility] Mupirocin (Bactroban Ointment (For Decolonization) -) 1 applic NS BID [facility] Stop: 12/19/19 09:59 Sotalol HCl (Betapace -) 80 mg PO BID [facility] ASSESSMENT/PLAN: 43 y.o. M PMH HTN, A-fib on eliquis, HLD. recent admission 12/05-12/10/2019 for chest pain now presenting w/ WPW syndrome w/ A-fib and chest pain. 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 Delta waves seen in leads II, III,V3 ,V4. qtc 410. 2nd ekg d one 1hr later showing NSR, persisten delta waves pr interval 168. -continuing home meds: sotalol 80mg BID, losartan 25mg daily -Eliquis 5mg BID for a-fib -On procainamide drip for WPW -f/u AM EKG -BPs 150s/90s- continue tele monitoring -trop neg x1, trend -echo 12/05/2019 showed EF 45-50%, mild cardiomyopathy -ER discussed case w/ Dr. Wheeler --advised to c/w procainamide drip #Pulm -Saturating well on RA -no acute issues #GI -isolated elevated alk phos 146 continue to monitor -f/u ggt -f/u AM labs #PPX -Eliquis 5mg BID #FENLTD -no standing fluids -trend lytes replete prn -NPO; as per prior cardio notes possible ablation if uncontrolled -peripheral line Dispo: We will continue to follow the patient until procainamide drip titrated down. Thank you for this consultative opportunity. Visit type - Emergency Visit Emergency Visit: Yes ED Registration Date: 12/14/19 Care time: The patient presented to the Emergency Department on the above date and was hospitalized for further evaluation of their emergent condition. - New Patient This patient is new to me today: Yes Date on this admission: 01/24/20 - Critical Care Critical Care patient: Yes Total Critical Care Time (in minutes): 45 Critical Care Statement: The care of this patient involved high complexity decision making to prevent further life threatening deterioration of the patient's condition and/or to evaluate & treat vital organ system(s) failure or risk of failure. ATTENDING PHYSICIAN STATEMENT I saw and evaluated the patient. I reviewed the resident's note and discussed the case with the resident. I agree with the resident's findings and plan as documented. SUBJECTIVE: OBJECTIVE: ASSESSMENT AND PLAN:
--- NOTE | 2019-12-14 04:25 | HP ---
Admitting History and Physical - Primary Care Physician PCP: Zara Pope - Admission Chief Complaint: Chest Pain, Palpitations, SOB History of Present Illness: This is a 43 y/o man with a significant PMHx of WPW (recently started on Sotalol and apixaban), Paroxysmal Afib, HTN, HLD, Obesity. recently discharged from the hospital one week ago for Palpitations, Chest Pain. Who presents to the ED with chest pain, lightheadedness, and palpitations. Upon presentation to the ED the patient was in SVT w/ aberrant response at a rate of 160. He was promptly placed on a monitor, defibrillator pads placed on patient, and a Procainamide drip was started. Patient states earlier today while he was at a [employer] around 12:10 in the morning. He denies drinking alcohol or using other substances at the [employer]. Pain is now resolved in the ER and the patient denies current SOB, CP, or other symptoms. He presented bc last time he felt chest pain like this he had a mild MT. History Source: Patient Limitations to Obtaining History: No Limitations - Past Medical History Cardiovascular: Yes: AFIB (Paroxysmal since .), HTN, Hyperlipdemia ( ) Renal/: Yes: Renal Calculi - Smoking History Smoking history: Never smoked Have you smoked in the past 12 months: No Aproximately how many cigarettes per day: 0 - Alcohol/Substance Use Hx Alcohol Use: No History of Substance Use: reports: None - Social History ADL: Independent History of Recent Travel: No Home Medications - Allergies Allergies/Adverse Reactions: Allergies Allergy/AdvReac Type Severity Reaction Status Date / Time No Known Allergies Allergy Verified 12/14/19 00:40 - Home Medications Home Medications: Ambulatory Orders Apixaban [Eliquis -] 5 mg PO BID #30 tablet 12/07/19 Losartan Potassium [Cozaar -] 25 mg PO DAILY tablet 12/07/19 Sotalol HCl [Betapace -] 80 mg PO BID 30 Days #60 tablet 12/07/19 Review of Systems - Review of Systems Constitutional: reports: No Symptoms Eyes: reports: No Symptoms HENT: reports: No Symptoms Neck: reports: No Symptoms Cardiovascular: reports: Chest Pain, Palpitations, Shortness of Breath Respiratory: reports: SOB Gastrointestinal: reports: No Symptoms Genitourinary: reports: No Symptoms Breasts: reports: No Symptoms Reported Musculoskeletal: reports: No Symptoms Integumentary: reports: No Symptoms Neurological: reports: No Symptoms Endocrine: reports: No Symptoms Hematology/Lymphatic: reports: No Symptoms Psychiatric: reports: No Symptoms Pain Intensity: 6 Physical Examination Vital Signs: Vital Signs Temperature 98.0 F 12/14/19 00:25 Pulse Rate 71 12/14/19 01:30 Respiratory Rate 18 12/14/19 01:30 Blood Pressure 150/93 12/14/19 01:30 O2 Sat by Pulse Oximetry (%) 97 12/14/19 01:30 Constitutional: Yes: Well Nourished, No Distress, Calm Eyes: Yes: WNL, Conjunctiva Clear, EOM Intact, PERRL HENT: Yes: WNL, Atraumatic, Normocephalic Neck: Yes: WNL, Supple, Trachea Midline Cardiovascular: Yes: Tachycardia, Pulse Irregular, S1, S2 Respiratory: Yes: WNL, Regular, CTA Bilaterally Gastrointestinal: Yes: WNL, Normal Bowel Sounds, Soft ...Rectal Exam: Yes: Deferred Renal/: Yes: WNL Breast(s): Yes: WNL Musculoskeletal: Yes: WNL Extremities: Yes: WNL Edema: No Peripheral Pulses WNL: Yes Neurological: Yes: WNL, Alert, Oriented, Cran Nerves II-XII Intact ...Motor Strength: WNL Psychiatric: Yes: WNL, Alert, Oriented Labs: CBC, BMP 12/14/19 00:46 12/14/19 00:46 Imaging - Results Chest X-ray: Image Reviewed Problem List - Problems (1) Rapid atrial fibrillation Assessment/Plan: Continue cardiac monitoring Started on Procainamide Drip Monitor QT closely Cardiology notified and aware per ED resident Serial enzymes [id number] Continue Eliquis Echo 12/05/19- mild decreased LV, EF 45-50%, mild cardiomyopathy Code(s): I48.91 - UNSPECIFIED ATRIAL FIBRILLATION (2) Chest pain Assessment/Plan: HEART Score 4 EDUARDO 3 Appreciate Cardiology consult Serial Enzymes neg x1 Echo 12/05/19- mild decreased LV, EF 45-50%, mild cardiomyopathy Continue Asa Continue BB Code(s): R07.9 - CHEST PAIN, UNSPECIFIED (3) WPW (Pzqgs-Ggootvgki-Jenpm syndrome) Assessment/Plan: EKG reviewed Continue home meds Cardiology consulted Continue cardiac monitoring Code(s): I45.6 - PRE-EXCITATION SYNDROME (4) HTN (hypertension) Assessment/Plan: sub optimal Monitor BP Continue Sotalol, Losartan Appreciate Cardiology input Monitor renal function Code(s): I10 - ESSENTIAL (PRIMARY) HYPERTENSION Qualifiers: Hypertension type: essential hypertension Qualified Code(s): I10 - Essential (primary) hypertension (5) HLD (hyperlipidemia) Assessment/Plan: stable Continue statin Monitor LFTs Code(s): E78.5 - HYPERLIPIDEMIA, UNSPECIFIED Qualifiers: Hyperlipidemia type: unspecified Qualified Code(s): E78.5 - Hyperlipidemia , unspecified Assessment/Plan This is a 43 y/o man admitted to ICU for Afib with RVR, Chest Pain r/o ACS for further evaluation of their emergent condition. Plan: See Problem List FEN Replete lytes NPO DVT ppx OOB SCDs Continue Eliquis Dispo: Requires Inpatient Care Visit type - Emergency Visit Emergency Visit: Yes ED Registration Date: 12/14/19 Care time: The patient presented to the Emergency Department on the above date and was hospitalized for further evaluation of their emergent condition. - New Patient This patient is new to me today: Yes Date on this admission: 12/14/19 - Critical Care Critical Care patient: Yes Total Critical Care Time (in minutes): 35 Critical Care Statement: The care of this patient involved high complexity decision making to prevent further life threatening deterioration of the patient 's condition and/or to evaluate & treat vital organ system(s) failure or risk of failure.
[2019-12-14] MEDS ORDERED: LOSARTAN POTASSIUM 25 MG TABLET PO STA (05:10)
[2019-12-14 07:11] LABS: BASO % 0.6 % (0-2.0); EOS % 0.4 % (0-4.5); HEMATOCRIT 44.7 % (35.4-49); HEMOGLOBIN 15.4 GM/dL (11.7-16.9); LYMPH % 27.6 % (8-40); MCH 29.8 pg (25.7-33.7); MCHC 34.5 g/dl (32.0-35.9); MEAN CELL VOLUME 86.5 fl (80-96); MEAN PLT VOLUME 8.8 fl (7.5-11.1); MONO % 8.4 % (3.8-10.2); PLATELET COUNT 243 K/MM3 (134-434); RBC 5.17 M/mm3 (4.00-5.60); RDW 14.4 % (11.9-15.9); WHITE BLOOD COUNT 8.3 K/mm3 (4.0-10.0)
[2019-12-14 08:22] LABS: ALBUMIN 3.6 g/dl (3.4-5.0); BILIRUBIN,TOTAL 0.4 mg/dL (0.2-1); BLOOD UREA NITROGEN 13.1 mg/dL (7-18); CALCIUM 8.8 mg/dL (8.5-10.1); MAGNESIUM 2.2 mg/dL (1.8-2.4); PHOSPHOROUS 2.7 mg/dL (2.5-4.9); TOT PROT 7.3 g/dl (6.4-8.2)
--- NOTE | 2019-12-14 08:59 | PN ---
Progress Note (short form) - Note Progress Note: admitted for rapid afib and palpitation, started on procainamide drip converted back to normal sinus rhythm has been compliant with his medications no alcohol, has been well otherwise recent admission a week ago for rapid afib CBC, BMP 12/14/19 05:47 12/14/19 05:47 Vital Signs Period Temp Pulse Resp BP Sys/Singh Pulse Ox Last 24 Hr 98.0 F-98.3 F 62-141 15-22 130-170/75-119 97-100 s1s2 reg.rate mathieu at 50/min lungs cta abd soft non tender no edema aaox3 Active Medications Apixaban (Eliquis -) 5 mg PO BID [facility] Chlorhexidine Gluconate (Hibiclens For Decolonization -) 1 applic TP HS [facility] Procainamide HCl 2,000 mg/ (Dextrose) 500 mls @ 30 mls/hr IVPB TITR [facility]; Protocol Last Titration: 12/14/19 06:30 Dose: 0 mg/min, 0 mls/hr Losartan Potassium (Cozaar -) 25 mg PO DAILY [facility] Mupirocin (Bactroban Ointment (For Decolonization) -) 1 applic NS BID [facility] Stop: 12/19/19 09:59 Sotalol HCl (Betapace -) 80 mg PO BID [facility] rapid afib-procainamide as per cardio cont sotalol and eliquis ablation?
[2019-12-14] MEDS ORDERED: LOSARTAN POTASSIUM 25 MG TABLET PO SCH (10:00)
--- NOTE | 2019-12-14 10:42 | EKG ---
Test Reason : Blood Pressure : / mmHG Vent. Rate : 045 BPM Atrial Rate : 045 BPM P-R Int : 158 ms QRS Dur : 098 ms QT Int : 464 ms P-R-T Axes : 053 008 015 degrees QTc Int : 401 ms SINUS BRADYCARDIA WHEN COMPARED WITH ECG OF 14-DEC-2019 01:42, VENT. RATE HAS DECREASED BY 22 BPM Confirmed by HAROON ERICKSON MD ([id number]) on 12/14/2019 10:41:51 AM Referred By: Michell WALKER Confirmed By:HAROON ERICKSON MD
--- NOTE | 2019-12-14 10:45 | EKG ---
Test Reason : Blood Pressure : / mmHG Vent. Rate : 067 BPM Atrial Rate : 067 BPM P-R Int : 168 ms QRS Dur : 098 ms QT Int : 412 ms P-R-T Axes : 044 006 026 degrees QTc Int : 435 ms NORMAL SINUS RHYTHM NONSPECIFIC ST ABNORMALITY Confirmed by HAROON ERICKSON MD ([id number]) on 12/14/2019 10:44:48 AM Referred By: Confirmed By:HAROON ERICKSON MD
--- NOTE | 2019-12-14 10:47 | EKG ---
Test Reason : Blood Pressure : / mmHG Vent. Rate : 146 BPM Atrial Rate : 122 BPM P-R Int : 000 ms QRS Dur : 094 ms QT Int : 270 ms P-R-T Axes : 000 026 024 degrees QTc Int : 420 ms ATRIAL FIBRILLATION WITH RAPID VENTRICULAR RESPONSE WITH PREMATURE VENTRICULAR OR ABERRANTLY CONDUCTED COMPLEXES NONSPECIFIC ST ABNORMALITY ABNORMAL ECG WHEN COMPARED WITH ECG OF 07-DEC-2019 09:39, ATRIAL FIBRILLATION HAS REPLACED SINUS RHYTHM VENT. RATE HAS INCREASED BY [address] NOW DEPRESSED IN ANTERIOR LEADS Confirmed by HAROON ERICKSON MD ([id number]) on 12/14/2019 10:47:43 AM Referred By: Confirmed By:HAROON ERICKSON MD
[2019-12-14] MEDS: APIXABAN 5 MG TABLET PO SCH ×2 (11:00→22:55)
[2019-12-14] MEDS: SOTALOL HCL 80 MG TABLET (FP) PO SCH ×2 (11:00→23:14)
[2019-12-14] MEDS: MUPIROCIN 2% TOPICAL OINTMENT FOR DECOLONIZATION NS SCH ×2 (11:00→22:55)
--- NOTE | 2019-12-14 12:14 | CONSULT ---
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 Overnight he came to the ED with chest pain, lightheadedness, and palpitations, found to be SVT w/ aberrant response at a rate of 160. Started on a Procainamide drip and overnight had reversion to sinus with rates in high 40s to 50s. This am pt was weaned off the procainamide gtt and his home meds were restarted. Cx pn resolved. Being followed by cardiology. - Past Medical History Cardio/Vascular: Yes: AFIB (Paroxysmal since .), HTN, Hyperlipdemia ( ) Renal/: Yes: Renal Calculi - Alcohol/Substance Use Hx Alcohol Use: No History of Substance Use: reports: None - Smoking History Smoking history: Never smoked Have you smoked in the past 12 months: No Aproximately how many cigarettes per day: 0 - Social History ADL: Independent History of Recent Travel: No Home Medications - Allergies Allergies/Adverse Reactions: Allergies Allergy/AdvReac Type Severity Reaction Status Date / Time No Known Allergies Allergy Verified 12/14/19 00:40 - Home Medications Home Medications: Ambulatory Orders Apixaban [Eliquis -] 5 mg PO BID #30 tablet 12/07/19 Losartan Potassium [Cozaar -] 25 mg PO DAILY tablet 12/07/19 Sotalol HCl [Betapace -] 80 mg PO BID 30 Days #60 tablet 12/07/19 Family Medical History Family History: Unremarkable Review of Systems Findings/Remarks: 12 pt review negative except as per HPI Physical Exam Vital Signs: Vital Signs Temperature 98.3 F 12/14/19 06:00 Pulse Rate 62 12/14/19 06:00 Respiratory Rate 15 12/14/19 06:00 Blood Pressure 132/84 12/14/19 06:00 O2 Sat by Pulse Oximetry (%) 100 12/14/19 04:18 Constitutional: Yes: Well Nourished, No Distress Eyes: Yes: Conjunctiva Clear, EOM Intact HENT: Yes: Atraumatic, Normocephalic Neck: Yes: Supple, Trachea Midline Cardiovascular: Yes: Bradycardia. No: Murmur Respiratory: Yes: Regular, CTA Bilaterally Labs: CBC, BMP 12/14/19 05:47 12/14/19 05:47 Imaging - Results EKG: Report Reviewed, Image Reviewed Assessment/Plan A/ 43 yo Man, with pAF, presented with RVR, briefly on procainimde gtt, now converted back to sinus, hemodynamically stable P/ -eliquis -sotalol bid -possible ablation as outpt -floor vs D/c home
--- NOTE | 2019-12-14 13:05 | CON.CARD ---
Consult Consult Specialty:: Cardiology Referred by:: Dr. Barreto - ED Reason for Consultation:: Recurrent PAF with RVR - History of Present Illness Chief Complaint: Chest pain, palpitations History of Present Illness: Patient is a 43 year old male with underlying history of paroxysmal AF on Apixaban and sotalol, HTN, hypercholesterolemia, mild LV systolic dysfunction presented for recurrent chest pain, palpitations, dizziness, dyspnea c/w recurrent PAF with RVR, started on Procainmide gtt which converted him to sinus rhythm with abolition of sxs. He reports compliance with sotalol and eliquis. - History Source History Provided By: Patient Limitations to Obtaining History: No Limitations - Past Medical History Cardio/Vascular: Yes: AFIB (Paroxysmal since .), HTN, Hyperlipdemia ( ) Renal/: Yes: Renal Calculi - Alcohol/Substance Use Hx Alcohol Use: No History of Substance Use: reports: None - Smoking History Smoking history: Never smoked Have you smoked in the past 12 months: No Aproximately how many cigarettes per day: 0 - Social History ADL: Independent History of Recent Travel: No Home Medications - Allergies Allergies/Adverse Reactions: Allergies Allergy/AdvReac Type Severity Reaction Status Date / Time No Known Allergies Allergy Verified 12/14/19 00:40 - Home Medications Home Medications: Ambulatory Orders Apixaban [Eliquis -] 5 mg PO BID #30 tablet 12/07/19 Losartan Potassium [Cozaar -] 25 mg PO DAILY tablet 12/07/19 Sotalol HCl [Betapace -] 80 mg PO BID 30 Days #60 tablet 12/07/19 Review of Systems - Review of Systems Cardiovascular: reports: Chest Pain, Palpitations, Shortness of Breath Neurological: reports: Dizziness Vital Signs: Vital Signs Temperature 98.3 F 12/14/19 06:00 Pulse Rate 62 12/14/19 06:00 Respiratory Rate 15 12/14/19 06:00 Blood Pressure 132/84 12/14/19 06:00 O2 Sat by Pulse Oximetry (%) 100 12/14/19 04:18 Constitutional: Yes: No Distress, Calm, Thin Neck: Yes: Supple Respiratory: Yes: Regular, CTA Bilaterally Gastrointestinal: Yes: Normal Bowel Sounds, Soft Cardiovascular: Yes: Regular Rate and Rhythm JVD: No Carotid Bruit: No Heart Sounds: Yes: S1, S2 Murmur: Yes: Systolic Murmur, Grade 1 Edema: No - Other Data Labs, Other Data: CBC, BMP 12/14/19 05:47 12/14/19 05:47 INR, PTT INR 1.18 (0.83-1.09) H 12/14/19 00:46 Troponin, BNP 12/14/19 00:46 Troponin I < 0.02 Troponin, BNP 12/14/19 00:46 Troponin I < 0.02 Rapid afib @ 146 -> NSR @ 67 QTc 435 msec Echo: Report Reviewed Ejection Fraction %: LVEF > or = 40 % Imaging - Results Chest X-ray: Report Reviewed (NAD) Problem List - Problems (1) Chest pain Code(s): R07.9 - CHEST PAIN, UNSPECIFIED Qualifiers: Chest pain type: precordial pain Qualified Code(s): R07.2 - Precordial pain (2) HTN (hypertension) Code(s): I10 - ESSENTIAL (PRIMARY) HYPERTENSION Qualifiers: Hypertension type: essential hypertension Qualified Code(s): I10 - Essential (primary) hypertension (3) Palpitations Code(s): R00.2 - PALPITATIONS (4) Systolic dysfunction without heart failure Code(s): I51.89 - OTHER ILL-DEFINED HEART DISEASES (5) Paroxysmal atrial fibrillation Code(s): I48.0 - PAROXYSMAL ATRIAL FIBRILLATION Assessment/Plan 12/05/2019 Echo: Mildly decreased LV EF 45-50%, normal RV size and fxn, tr TR. 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 1. Recurrent paroxysmal Afib now in sinus rhythm post procainamide 2. HTN heart disease 3. Hypercholesterolemia 4. Elevated TSH with normal T3, free T4? sick euthyroid PLAN: 1. Continue Eliquis 5 bid given mild cardiomyopathy 2. Continue sotalol 80 bid with check QTc and losartan 25 qd given mild cardiomyopathy 3. If AF recurs or persistent despite sotalol, ablation may be considered as outpatient 4. D/c planning in AM with f/u with Dr. Luna , emphasized importance of compliance with medications and f/u 5. Thank you for consultative opportunity
[2019-12-14] MEDS: LOSARTAN POTASSIUM 25 MG TABLET PO SCH (16:41)
[2019-12-14] MEDS ORDERED: PT OWN MED DRAWER 7, Y5N ONE (21:06)
[2019-12-14] MEDS ORDERED: CHLORHEXIDINE GLUCONATE 4% CLEANSER FOR DECOLONIZATION TP SCH (22:00)
[2019-12-15 06:09] VITALS: TEMP 98.2
[2019-12-15] MEDS ORDERED: PT OWN MED DRAWER 7, Y5N ONE (09:54)
--- NOTE | 2019-12-15 10:04 | DS ---
Physical Examination Vital Signs: Vital Signs Temperature 98.2 F 12/15/19 06:00 Pulse Rate 42 L 12/15/19 06:00 Respiratory Rate 12 12/15/19 06:00 Blood Pressure 142/80 12/15/19 06:00 O2 Sat by Pulse Oximetry (%) 96 12/14/19 20:22 Constitutional: Yes: Calm Eyes: Yes: EOM Intact HENT: Yes: Normocephalic Neck: Yes: Trachea Midline Cardiovascular: Yes: Regular Rate and Rhythm, Bradycardia Respiratory: Yes: CTA Bilaterally Gastrointestinal: Yes: Normal Bowel Sounds, Soft Musculoskeletal: Yes: WNL Extremities: Yes: WNL Edema: No Peripheral Pulses WNL: Yes Neurological: Yes: WNL Labs: CBC, BMP 12/14/19 05:47 12/14/19 05:47 Discharge Summary Problems reviewed: Yes Reason For Visit: [id number] PERSON/RAPID ATRIAL FIBRILAT Current Active Problems Chest pain (Acute) Chest pain (Acute) Hospital Course: admitted for rapid afib and palpitation, started on procainamide drip; converted back to normal sinus rhythm and procainamide was dcd has been compliant with his medications no alcohol, has been well otherwise (recent admission a week ago for rapid afib) resumed sotalol, losartan and eliquis rhythm has been sinus with bradycardia down to 40s without symptoms ok to dc home with outpt follow up will need ep studies Condition: Stable - Instructions Diet, Activity, Other Instructions: call for appointment dr alarcon mondaydecember 20 Referrals: Zara Pope MD [Primary Care Provider] - Disposition: HOME - Home Medications Comprehensive Discharge Medication List: Ambulatory Orders Apixaban [Eliquis -] 5 mg PO BID #30 tablet 12/07/19 Losartan Potassium [Cozaar -] 25 mg PO DAILY tablet 12/07/19 Sotalol HCl [Betapace -] 80 mg PO BID 30 Days #60 tablet 12/07/19
[2019-12-15] MEDS: LOSARTAN POTASSIUM 25 MG TABLET PO SCH (10:05)
[2019-12-15] MEDS: APIXABAN 5 MG TABLET PO SCH (10:05)
[2019-12-15] MEDS: SOTALOL HCL 80 MG TABLET (FP) PO SCH (10:05)
[2019-12-15] MEDS: MUPIROCIN 2% TOPICAL OINTMENT FOR DECOLONIZATION NS SCH (10:05)
[2019-12-15 10:07] VITALS: BP 147/87; PULSE 47
--- NOTE | 2019-12-15 11:43 | PN ---
Progress Note (short form) - Note Progress Note: Progress Note Pulm/CCM Pt seen and examined in the ICU. No episodes of tachycardia overnight. HR in 40- 50's. BP slightly hypertensive. No complaints. plan for d/c home today. Active Medications Apixaban (Eliquis -) 5 mg PO BID [facility] Last Admin: 12/15/19 10:05 Dose: 5 mg Chlorhexidine Gluconate (Hibiclens For Decolonization -) 1 applic TP HS [facility] Last Admin: 12/14/19 22:55 Dose: 1 applic Losartan Potassium (Cozaar -) 25 mg PO DAILY [facility] Last Admin: 12/15/19 10:05 Dose: 25 mg Mupirocin (Bactroban Ointment (For Decolonization) -) 1 applic NS BID [facility] Stop: 12/19/19 09:59 Last Admin: 12/15/19 10:05 Dose: 1 applic Sotalol HCl (Betapace -) 80 mg PO BID [facility] Last Admin: 12/15/19 10:05 Dose: 80 mg Vital Signs Period Temp Pulse Resp BP Sys/Singh Pulse Ox Last 24 Hr 97.8 F-98.7 F 41-54 12-18 128-157/74-91 96 Intake & Output 12/12/19 12/13/19 12/14/19 12/15/19 23:59 23:59 23:59 23:59 Intake Total 700 100 Output Total 1650 Balance -950 100 Weight 100.839 kg 98.838 kg Gen: Yes: Well Nourished, No Distress HENT: Atraumatic, Normocephalic Cardiovascular: Bradycardia. No: Murmur Respiratory: Regular, CTA Bilaterally Labs: CBC, BMP 12/14/19 05:47 12/14/19 05:47 Imaging - Results EKG: Report Reviewed, Image Reviewed Assessment/Plan A/ 43 yo Man, with pAF, presented with RVR, briefly on procainimde gtt, now converted back to sinus, hemodynamically stable. Maintained on Sotalol BID P/ -eliquis -sotalol bid -possible ablation as outpt - D/c home today Jamia Fulton, [facility]
--- NOTE | 2019-12-15 12:19 | EKG ---
Test Reason : Blood Pressure : / mmHG Vent. Rate : 047 BPM Atrial Rate : 047 BPM P-R Int : 150 ms QRS Dur : 100 ms QT Int : 464 ms P-R-T Axes : 031 -01 019 degrees QTc Int : 410 ms SINUS BRADYCARDIA NON-SPECIFIC INTRA-VENTRICULAR CONDUCTION DELAY WHEN COMPARED WITH ECG OF 14-DEC-2019 22:42, NO SIGNIFICANT CHANGE WAS FOUND Confirmed by HAROON ERICKSON MD ([id number]) on 12/15/2019 12:19:19 PM Referred By: Kim JON Confirmed By:HAROON ERICKSON MD
--- NOTE | 2019-12-15 12:28 | EKG ---
Test Reason : Blood Pressure : / mmHG Vent. Rate : 041 BPM Atrial Rate : 041 BPM P-R Int : 148 ms QRS Dur : 100 ms QT Int : 486 ms P-R-T Axes : 033 -03 014 degrees QTc Int : 400 ms MARKED SINUS BRADYCARDIA ABNORMAL ECG WHEN COMPARED WITH ECG OF 14-DEC-2019 10:02, NO SIGNIFICANT CHANGE WAS FOUND Confirmed by HAROON ERICKSON MD ([id number]) on 12/15/2019 12:28:14 PM Referred By: Confirmed By:HAROON ERICKSON MD
== END 2019-12-15 11:42 | disposition home or self-care (01) | DRG 201 ==
LOC: JER 00:19 → JERBED 03:52 → JICU 04:52
PROVIDERS: ADMIT Internal Medicine; ATTEND Internal Medicine
DX: I48.0 Paroxysmal atrial fibrillation (principal); R00.2 Palpitations; R07.9 Chest pain, unspecified; I45.6 Pre-excitation syndrome; I10 Essential (primary) hypertension; E78.5 Hyperlipidemia, unspecified; R00.1 Bradycardia, unspecified; I42.9 Cardiomyopathy, unspecified; E66.9 Obesity, unspecified; Z68.28 Body mass index [BMI] 28.0-28.9, adult
CPT/HCPCS: 36415; 71045-TC-FY; 80053; 82550; 82977; 83735; 84100; 84484; 85025; 85610; 85730; 93005; 93010; 99285-25; J7030

== ENCOUNTER 2019-12-20 19:25 | Inpatient (IN) | payer OTHER ==
--- NOTE | 2019-12-20 19:32 | PDOC ---
Rapid Medical Evaluation Time Seen by Provider: 12/20/19 19:31 Medical Evaluation: Allergies Allergy/AdvReac Type Severity Reaction Status Date / Time No Known Allergies Allergy Verified 12/14/19 00:40 12/20/19 19:31 I have performed a brief in-person evaluation of this patient. The patient presents with a chief complaint of: CP and palpitations today. H/o afib on beta kami and eliquis, SVT s/p cardioversion, ? WPW, HLD, s/p recent ICU admission for afib Pertinent physical exam findings: EKG done at triage showing AFIB w/ RVR to 130s, BP 176/101, taken immediately to main ED I have ordered the following:ekg/cxr/labs The patient will proceed to the ED for further evaluation. Discharge Disposition - Diagnosis Rapid atrial fibrillation - Referrals - Patient Instructions - Post Discharge Activity
[2019-12-20] MEDS ORDERED: dilTIAZem HCL 50 MG/10 ML - 10 ML VIAL IVPUSH ONE ×4 (20:07→21:12)
--- NOTE | 2019-12-20 20:13 | PDOC ---
History of Present Illness - General Chief Complaint: Chest Pain Stated Complaint: CHEST PAIN Time Seen by Provider: 12/20/19 19:31 History Source: Patient Exam Limitations: No Limitations - History of Present Illness Initial Comments: 12/20/19 20:13 43y M with PMH of Afib, WPW, HTN, HLD, Cardiomyopathy presenting to ED with complaints of palpitations for 10-15 minutes of sudden onset palpitations. Pt has been seen here multiple times for RVR. Previously, pt was cardioverted by EMS and was started on procainamide drip which converted him. Pt endorses palpiations and SOB. He denies chest pain, headache, back pain, fevers, chills, n/v/d, recent surgery, recent travel. He states he is compliant with his meds ( Sotalol, Eliquis, Losartan). Denies heavy alcohol consumption. 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 Last EF on Echo 11/2019 40-45% PMD: Niko Cards: Cheryl PMH: see hpi Meds: see med rec Allergies: nkda Social: denies Past History - Past Medical History Allergies/Adverse Reactions: Allergies Allergy/AdvReac Type Severity Reaction Status Date / Time No Known Allergies Allergy Verified 12/20/19 19:36 Home Medications: Ambulatory Orders Apixaban [Eliquis -] 5 mg PO BID #30 tablet 12/07/19 Losartan Potassium [Cozaar -] 25 mg PO DAILY tablet 12/07/19 Sotalol HCl [Betapace -] 80 mg PO BID 30 Days #60 tablet 12/07/19 Anemia: No Asthma: No Cancer: No Cardiac Disorders: Yes (Paroxysmal A-Fib) CVA: No COPD: No CHF: No Dementia: No Diabetes: No GI Disorders: No Disorders: Yes (Renal stones) HTN: Yes Hypercholesterolemia: Yes Kidney Stones: Yes Seizures: No Thyroid Disease: Yes (Elevated TSH) Other medical history: macias parkensins white syndrome - Surgical History Cardiac Surgery: No (Cardioverted (2 shocks) - 12/06/2019) Orthopedic Surgery: Yes - Immunization History Immunization Up to Date: Yes - Psycho Social/Smoking Cessation Hx Smoking Status: No Smoking History: Never smoked Have you smoked in the past 12 months: No Number of Cigarettes Smoked Daily: 0 Cigars Per Day: 0 Hx Alcohol Use: No Drug/Substance Use Hx: No Substance Use Type: None Hx Substance Use Treatment: No Review of Systems - Review of Systems Constitutional: No: Symptoms Reported HEENTM: No: Symptoms Reported Respiratory: Yes: See HPI Cardiac (ROS): Yes: See HPI ABD/GI: No: Symptoms Reported : No: Symptoms Reported Musculoskeletal: No: Symptoms Reported Integumentary: No: Symptoms Reported Neurological: No: Symptoms reported *Physical Exam - Vital Signs Last Vital Signs Temp Pulse Resp BP Pulse Ox 98 F 139 H 18 176/101 H 100 12/20/19 19:32 12/20/19 19:32 12/20/19 19:32 12/20/19 19:32 12/20/19 19:32 - Physical Exam General Appearance: Yes: Nourished, Appropriately Dressed, Mild Distress HEENT: positive: EOMI, SARAHI, Normal ENT Inspection Neck: positive: Trachea midline, Supple. negative: Lymphadenopathy (R), Lymphadenopathy (L) Respiratory/Chest: positive: Lungs Clear, Normal Breath Sounds. negative: Decreased Breath Sounds, Paradoxal Breathing, Crackles, Rales, Rhonchi, Stridor , Wheezing Cardiovascular: positive: S1, S2, Irregularly Irregular. negative: Edema, JVD, Murmur Vascular Pulses: Dorsalis-Pedis (R): 2+, Doralis-Pedis (L): 2+ Gastrointestinal/Abdominal: positive: Normal Bowel Sounds, Soft. negative: Tender Musculoskeletal: negative: CVA Tenderness Extremity: positive: Normal Capillary Refill. 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 ekg shows afib RVR. pt is afebrile, tachyardic. likely refractory afib +/- accessory pathway. is on betablocker. will give diltazem 10mg still tachy, another 10mg given. HR down to 60s. given po diltiazem. 12/21/19 08:14 labs wnl, negative trop, unremarkable cxr. askd to call cardiology as to whether pt should remain here to to be transfered for ablation given persistnce of symptoms and this is Pt's 3rd ED visit this month. spoke to cardiology; pt can be admitted here. HR controlled, admitted to tele. Discharge - Discharge Information Problems reviewed: Yes Clinical Impression/Diagnosis: Rapid atrial fibrillation - Follow up/Referral - Patient Discharge Instructions - Post Discharge Activity
[2019-12-20] MEDS ORDERED: dilTIAZem HCL 125 MG/25 ML - 25 ML VIAL ONE ×2 (20:14→21:08)
[2019-12-20 20:28] LABS: BASO % 1.2 % (0-2.0); EOS % 1.2 % (0-4.5); HEMATOCRIT 45.9 % (35.4-49); HEMOGLOBIN 15.7 GM/dL (11.7-16.9); MCH 29.6 pg (25.7-33.7); MCHC 34.1 g/dl (32.0-35.9); MEAN CELL VOLUME 86.8 fl (80-96); MEAN PLT VOLUME 8.8 fl (7.5-11.1); NEUT % 46.6 % (42.8-82.8); PLATELET COUNT 295 K/MM3 (134-434); RBC 5.29 M/mm3 (4.00-5.60); RDW 14.1 % (11.9-15.9); WHITE BLOOD COUNT 7.1 K/mm3 (4.0-10.0)
[2019-12-20] MEDS ORDERED: dilTIAZem HCL 60 MG TABLET (FP) PO ONE (20:56)
[2019-12-20 21:06] LABS: INR 0.98 (0.83-1.09); PROTHROMBIN TIME (PATIENT) 11.6 SEC (9.7-13.0)
[2019-12-20] MEDS ORDERED: dilTIAZem HCL 60 MG TABLET (FP) ONE (21:07)
[2019-12-20 21:09] LABS: ALK PHOS 146 U/L (45-117); ANION GAP 5 MMOL/L (8-16); BILIRUBIN,TOTAL 0.2 mg/dL (0.2-1); CALCIUM 8.9 mg/dL (8.5-10.1); CHLORIDE 105 mmol/L (98-107); CO2 29 mmol/L (21-32); CREATININE 1.2 mg/dL (0.55-1.3); GLUCOSE,RANDOM 91 mg/dL (74-106); POTASSIUM 4.3 mmol/L (3.5-5.1); SGOT/AST 30 U/L (15-37); SGPT/ALT 33 U/L (13-61); SODIUM 139 mmol/L (136-145); TOT PROT 7.9 g/dl (6.4-8.2)
--- NOTE | 2019-12-20 21:35 | CON.CARD ---
Consult Consult Specialty:: Cardiology - History of Present Illness History of Present Illness: 43y M with PMH of Afib, WPW, HTN, HLD, Cardiomyopathy presenting to ED with complaints of palpitations for 10-15 minutes of sudden onset palpitations. Pt has been seen here multiple times for RVR. Previously, pt was cardioverted by EMS and was started on procainamide drip which converted him. Pt endorses palpiations and SOB. He denies chest pain, headache, back pain, fevers, chills, n/v/d, recent surgery, recent travel. He states he is compliant with his meds ( Sotalol, Eliquis, Losartan). Denies heavy alcohol consumption. 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 Last EF on Echo 11/2019 40-45% - History Source History Provided By: Patient, Medical Record - Past Medical History Cardio/Vascular: Yes: AFIB (Paroxysmal since .), HTN, Hyperlipdemia ( ) Renal/: Yes: Renal Calculi - Alcohol/Substance Use Hx Alcohol Use: No History of Substance Use: reports: None - Smoking History Smoking history: Never smoked Have you smoked in the past 12 months: No Aproximately how many cigarettes per day: 0 - Social History ADL: Independent History of Recent Travel: No Home Medications - Allergies Allergies/Adverse Reactions: Allergies Allergy/AdvReac Type Severity Reaction Status Date / Time No Known Allergies Allergy Verified 12/20/19 19:36 - Home Medications Home Medications: Ambulatory Orders Apixaban [Eliquis -] 5 mg PO BID #30 tablet 12/07/19 Losartan Potassium [Cozaar -] 25 mg PO DAILY tablet 12/07/19 Sotalol HCl [Betapace -] 80 mg PO BID 30 Days #60 tablet 12/07/19 Review of Systems - Review of Systems Constitutional: reports: No Symptoms Eyes: reports: No Symptoms HENT: reports: No Symptoms Neck: reports: No Symptoms Cardiovascular: reports: Palpitations Respiratory: reports: No Symptoms Gastrointestinal: reports: No Symptoms Genitourinary: reports: No Symptoms Breasts: reports: No Symptoms Reported Musculoskeletal: reports: No Symptoms Integumentary: reports: No Symptoms Neurological: reports: No Symptoms Endocrine: reports: No Symptoms Hematology/Lymphatic: reports: No Symptoms Psychiatric: reports: No Symptoms Vital Signs: Vital Signs Temperature 98 F 12/20/19 19:32 Pulse Rate 60 12/20/19 21:22 Respiratory Rate 18 12/20/19 21:22 Blood Pressure 136/97 12/20/19 21:22 O2 Sat by Pulse Oximetry (%) 100 12/20/19 21:22 Constitutional: Yes: Well Nourished, No Distress, Calm Eyes: Yes: WNL, Conjunctiva Clear, EOM Intact HENT: Yes: WNL, Atraumatic, Normocephalic Neck: Yes: WNL, Supple, Trachea Midline Respiratory: Yes: WNL, Regular, CTA Bilaterally Gastrointestinal: Yes: WNL, Normal Bowel Sounds Renal/: Yes: WNL Cardiovascular: Yes: WNL, Regular Rate and Rhythm Musculoskeletal: Yes: WNL Extremities: Yes: WNL Integumentary: Yes: WNL Neurological: Yes: WNL, Alert, Oriented ...Motor Strength: WNL Psychiatric: Yes: WNL, Alert, Oriented - Other Data Labs, Other Data: CBC, BMP 12/20/19 20:00 12/20/19 20:00 INR, PTT INR 0.98 (0.83-1.09) 12/20/19 20:00 Troponin, BNP 12/20/19 20:00 Troponin I < 0.02 Troponin, BNP 12/20/19 20:00 Troponin I < 0.02 Imaging - Results Chest X-ray: Image Reviewed (no i/e) EKG: Image Reviewed (sr IVCD nonspecific) Problem List - Problems (1) Rapid atrial fibrillation Code(s): I48.91 - UNSPECIFIED ATRIAL FIBRILLATION (2) Chest pain Code(s): R07.9 - CHEST PAIN, UNSPECIFIED (3) Chest pain Code(s): R07.9 - CHEST PAIN, UNSPECIFIED Qualifiers: Chest pain type: precordial pain Qualified Code(s): R07.2 - Precordial pain (4) Demand ischemia Code(s): I24.8 - OTHER FORMS OF ACUTE ISCHEMIC HEART DISEASE (5) HLD (hyperlipidemia) Code(s): E78.5 - HYPERLIPIDEMIA, UNSPECIFIED Qualifiers: Hyperlipidemia type: unspecified Qualified Code(s): E78.5 - Hyperlipidemia , unspecified (6) HTN (hypertension) Code(s): I10 - ESSENTIAL (PRIMARY) HYPERTENSION Qualifiers: Hypertension type: essential hypertension Qualified Code(s): I10 - Essential (primary) hypertension (7) Overweight (BMI 25.0-29.9) Code(s): E66.3 - OVERWEIGHT (8) Palpitations Code(s): R00.2 - PALPITATIONS (9) Paroxysmal atrial fibrillation Code(s): I48.0 - PAROXYSMAL ATRIAL FIBRILLATION (10) Systolic dysfunction without heart failure Code(s): I51.89 - OTHER ILL-DEFINED HEART DISEASES (11) WPW (Yomvg-Vpjouzmju-Xruvi syndrome) Code(s): I45.6 - PRE-EXCITATION SYNDROME Assessment/Plan Imp; PAF in NSR HTN Mildly reduced EF 45-50 Plan; cont Sotalol and Cardizem cont AC EP evaluation for posible AFablation cont telemetry Coverage for dr. Luna
--- NOTE | 2019-12-20 21:47 | PDOC ---
Documentation entered by Pete Sheriff SCRIBE, acting as scribe for Jackie Bullard MD. Jackie Bullard MD: This documentation has been prepared by the Sharita garcia Nirvannie, SCRIBE, under my direction and personally reviewed by me in its entirety. I confirm that the documentation accurately reflects all work, treatment, procedures, and medical decision making performed by me. Attending Attestation - Resident Resident Name: [place] - ED Attending Attestation I have performed the following: I have examined & evaluated the patient, The case was reviewed & discussed with the resident, I agree w/resident's findings & plan, Exceptions are as noted - HPI HPI: 12/20/19 21:15 The patient is a 43 year old male, with a significant past medical history of Afib (h/o RVR and cardioversions), Zgygw-Gutjclliv-Znrjn, HTN, HLD, Cardiomyopathy (EF 11/2019 40-45%), who presents to the emergency department with sudden onset palpitations lasting 10-15min with associated shortness of breath. Patient endorses an appointment with his rehabilitation liaison next week for discussion on possible ablation. He denies any recent chest pain or lightheadedness. He denies any recent fevers , chills, headache or dizziness. He denies any recent nausea, vomiting, diarrhea or constipation. He denies any recent dysuria, frequency, urgency or hematuria. Allergies: NKDA Past surgical history: None reported. Social History: Nonsmoker. Denies EtOH use and recreational drug use. Primary Care Physician: Dr. Pope Crew Leader/Control Room Operator: Dr. Luna - Physicial Exam PE: GENERAL: Awake, alert, and fully oriented, in no acute distress HEAD: No signs of trauma EYES: PERRLA, EOMI, sclera anicteric, conjunctiva clear ENT: Auricles normal inspection, hearing grossly normal, nares patent, oropharynx clear without exudates. Moist mucosa NECK: Normal ROM, supple, no lymphadenopathy, JVD, or masses LUNGS: Breath sounds equal, clear to auscultation bilaterally. No wheezes, and no crackles HEART: Tachycardic, irregularly irregular, normal S1 and S2, no murmurs, rubs or gallops ABDOMEN: Soft, nontender, normoactive bowel sounds. No guarding, no rebound. No masses EXTREMITIES: Normal range of motion, no edema. No clubbing or cyanosis. No cords, erythema, or tenderness NEUROLOGICAL: Cranial nerves II through XII grossly intact. Normal speech, normal gait. Motor and sensation intact SKIN: Warm, dry, normal turgor, no rashes or lesions noted. - Medical Decision Making Pt with history of WPW, afib, with two recent admissions for tachycardia. Presents with afib with RVR despite home sotalol. Given two doses of cardizem in ED with improvement. Will d/w cardio, admit.
[2019-12-21] MEDS: APIXABAN 5 MG TABLET PO SCH ×3 (00:23→21:18)
--- NOTE | 2019-12-21 02:19 | RAPID ---
Physical Examination Vital Signs: Vital Signs Temperature 98 F 12/20/19 19:32 Pulse Rate 90 12/21/19 00:23 Respiratory Rate 20 12/21/19 00:23 Blood Pressure 152/93 12/21/19 00:23 O2 Sat by Pulse Oximetry (%) 100 12/21/19 00:23 HR 160s Findings/Remarks: Rapid Response called for palpitations and chest discomfort. HR was up to 160s. Constitutional: Yes: Calm Eyes: No: Conjunctiva Clear, Sclera Icterus HENT: Yes: Atraumatic, Normocephalic Neck: Yes: Supple, Trachea Midline Cardiovascular: Yes: Regular Rate and Rhythm. No: Pulse Irregular, Murmur Respiratory: Yes: Regular, CTA Bilaterally. No: Accessory Muscle Use, Tachypnea Gastrointestinal: Yes: Soft. No: Ascites, Hernia, Tenderness, Epigastrium, Tenderness, Rebound Edema: LUE: 2+, RUE: 2+ Neurological: Yes: Alert, Oriented. No: Confusion, Tremors ...Motor Strength: WNL Psychiatric: Yes: WNL Labs: CBC, BMP 12/20/19 20:00 12/20/19 20:00 Rapid Response - Rapid Response Assessment: Palpitations 2/2 Afib w/ RVR(160s), resolved. Was cardioverted in the field. Received Cardizem 10, 10, 60mg in the ED. Bedside EKG reviewed, sinus bradycardia 52. Recommendations/Interventions: - fu ABG - fu troponin
[2019-12-21 02:30] LABS: ARTERIAL BLD GAS O2 SATURATION 98.5 % (95-98); ARTERIAL BLOOD GAS PCO2 39.5 mmHg (35-45); ARTERIAL BLOOD GAS PO2 121 mmHg (80-100); ARTERIAL BLOOD GAS pH 7.45 (7.35-7.45)
[2019-12-21 02:34] LABS: ALLENS TEST POSITIVE
--- NOTE | 2019-12-21 03:07 | HP ---
Admitting History and Physical - Primary Care Physician PCP: Zara Pope - Admission Chief Complaint: Palpitations, SOB History of Present Illness: This is a 43 y/o man with a PMHx of Afib (h/o RVR, cardioversions), Kp- Parkinson-White, Cardiomyopathy (EF 40-45%, 11/2019), HTN, HLD. Who presents to the ED with palpitations and SOB lasting 10-15 min. Patient reports that the palpitations occurred while at rest. Patient reports having an appointment next week with his bruise trimmer for discussion on possible ablation. Patient reports taking his medications as prescribed. Patient denies illicit drug use. Patient denies chest pain. Patient denies fever, chills, cough, AP, N/V/D, melena, hematochezia, hematuria, dysuria. History Source: Patient Limitations to Obtaining History: No Limitations - Past Medical History Cardiovascular: Yes: AFIB (Paroxysmal since .), HTN, Hyperlipdemia ( ), Other (WPW Cardiomyopathy) Renal/: Yes: Renal Calculi - Past Surgical History Additional Past Surgical History: cardioversion - Smoking History Smoking history: Never smoked Have you smoked in the past 12 months: No Aproximately how many cigarettes per day: 0 - Alcohol/Substance Use Hx Alcohol Use: No History of Substance Use: reports: None - Social History Usual Living Arrangement: Yes: With Spouse Do you think of yourself as: Straight/Heterosexual ADL: Independent History of Recent Travel: No Home Medications - Allergies Allergies/Adverse Reactions: Allergies Allergy/AdvReac Type Severity Reaction Status Date / Time No Known Allergies Allergy Verified 12/20/19 19:36 - Home Medications Home Medications: Ambulatory Orders Apixaban [Eliquis -] 5 mg PO BID #30 tablet 12/07/19 Losartan Potassium [Cozaar -] 25 mg PO DAILY tablet 12/07/19 Sotalol HCl [Betapace -] 80 mg PO BID 30 Days #60 tablet 12/07/19 Family Medical History Family Hx Cardiac Disorders: Mother (HTN) Review of Systems - Review of Systems Constitutional: reports: No Symptoms Eyes: reports: No Symptoms HENT: reports: No Symptoms Neck: reports: No Symptoms Cardiovascular: reports: Palpitations, Shortness of Breath Respiratory: reports: SOB Gastrointestinal: reports: No Symptoms Genitourinary: reports: No Symptoms Breasts: reports: No Symptoms Reported Musculoskeletal: reports: No Symptoms Integumentary: reports: No Symptoms Neurological: reports: No Symptoms Endocrine: reports: No Symptoms Hematology/Lymphatic: reports: No Symptoms Psychiatric: reports: No Symptoms Pain Intensity: 0 Physical Examination Vital Signs: Vital Signs Temperature 98 F 12/20/19 19:32 Pulse Rate 90 12/21/19 00:23 Respiratory Rate 20 12/21/19 00:23 Blood Pressure 152/93 12/21/19 00:23 O2 Sat by Pulse Oximetry (%) 100 12/21/19 00:23 Constitutional: Yes: Well Nourished, No Distress, Calm Eyes: Yes: WNL, Conjunctiva Clear, EOM Intact, PERRL HENT: Yes: WNL, Atraumatic, Normocephalic Neck: Yes: WNL, Supple, Trachea Midline Cardiovascular: Yes: Bradycardia, Pulse Irregular, S1, S2 Respiratory: Yes: WNL, Regular, CTA Bilaterally, On Nasal O2 Gastrointestinal: Yes: WNL, Normal Bowel Sounds, Soft ...Rectal Exam: Yes: Deferred Renal/: Yes: WNL Breast(s): Yes: WNL Musculoskeletal: Yes: WNL Extremities: Yes: WNL Edema: No Peripheral Pulses WNL: Yes Integumentary: Yes: WNL Neurological: Yes: WNL, Alert, Oriented, Cran Nerves II-XII Intact ...Motor Strength: WNL Psychiatric: Yes: WNL, Alert, Oriented Labs: CBC, BMP 12/20/19 20:00 12/20/19 20:00 Laboratory Results - last 24 hr 12/20/19 12/20/19 12/20/19 20:00 20:00 20:00 WBC 7.1 RBC 5.29 Hgb 15.7 Hct 45.9 MCV 86.8 MCH 29.6 MCHC 34.1 RDW 14.1 Plt Count 295 D MPV 8.8 Absolute Neuts (auto) 3.3 Neutrophils % 46.6 D Lymphocytes % 43.0 H D Monocytes % 8.0 Eosinophils % 1.2 D Basophils % 1.2 Nucleated RBC % 0 PT with INR 11.60 INR 0.98 Puncture Site ABG pH ABG pCO2 at Pt Temp ABG pO2 at Pt Temp ABG HCO3 ABG O2 Sat (Measured) ABG O2 Content ABG Base Excess Pola Test O2 Delivery Device Oxygen Flow Rate Sodium 139 Potassium 4.3 Chloride 105 Carbon Dioxide 29 Anion Gap 5 L BUN 18.0 Creatinine 1.2 Est GFR (CKD-EPI)AfAm 84.13 Est GFR (CKD-EPI)NonAf 72.59 Random Glucose 91 Calcium 8.9 Total Bilirubin 0.2 AST 30 ALT 33 Alkaline Phosphatase 146 H Creatine Kinase 88 Troponin I < 0.02 Total Protein 7.9 Albumin 4.0 Current Medications Generic Name Dose Route Start Last Admin Trade Name Freq PRN Reason Stop Dose Admin Apixaban 5 mg 12/20/19 22:45 12/21/19 00:23 Eliquis - PO 5 mg BID JAVIER Administration Losartan Potassium 25 mg 12/21/19 10:00 Cozaar - PO DAILY JAVIER Sotalol HCl 80 mg 12/21/19 10:00 Betapace - PO BID JAVIER Intake & Output 12/18/19 12/19/19 12/20/19 12/21/19 23:59 23:59 23:59 23:59 Weight 97.522 kg Imaging - Results Chest X-ray: Image Reviewed EKG: Image Reviewed Problem List - Problems (1) Rapid atrial fibrillation Assessment/Plan: Cardizem given in ED- rate controlled Continue cardiac monitoring Appreciate Cardiology consult- ED resident spoke with Dr. Recinos Serial enzymes neg x1, will trend Chest Xray image- no infiltrate no effusion EKG- Afib with RVR [id number] Continue Eliquis, Sotalol with parameters Code(s): I48.91 - UNSPECIFIED ATRIAL FIBRILLATION (2) WPW (Rglxl-Hmszehlld-Sjnam syndrome) Assessment/Plan: Continue Sotalol Continue cardiac monitoring Code(s): I45.6 - PRE-EXCITATION SYNDROME (3) Systolic dysfunction without heart failure Assessment/Plan: Echo (11/2019)- EF 40-45% Continue Losartan Code(s): I51.89 - OTHER ILL-DEFINED HEART DISEASES (4) HTN (hypertension) Assessment/Plan: sub optimal Continue Sotalol, Losartan Monitor BP Monitor renal function Code(s): I10 - ESSENTIAL (PRIMARY) HYPERTENSION Qualifiers: Hypertension type: essential hypertension Qualified Code(s): I10 - Essential (primary) hypertension (5) HLD (hyperlipidemia) Assessment/Plan: No current medication Consider Lipitor- will defer to Cardiology Code(s): E78.5 - HYPERLIPIDEMIA, UNSPECIFIED Qualifiers: Hyperlipidemia type: unspecified Qualified Code(s): E78.5 - Hyperlipidemia , unspecified (6) Overweight (BMI 25.0-29.9) Code(s): E66.3 - OVERWEIGHT Assessment/Plan This is a 43 y/o man with a PMHx of Afib (h/o RVR, cardioversion, on Eliquis), WPW, HTN, HLD, Cardiomyopathy (EF 40-45%). Admitted to Telemetry for Atrial Fibrillation with RVR for further evaluation of their emergent condition. Plan: See Problem List FEN PO fluids as tolerated Replete lytes prn Low Na Diet DVT ppx OOB SCDs Continue Eliquis Dispo: Requires Inpatient Care Visit type - Emergency Visit Emergency Visit: Yes ED Registration Date: 12/20/19 Care time: The patient presented to the Emergency Department on the above date and was hospitalized for further evaluation of their emergent condition. - New Patient This patient is new to me today: Yes Date on this admission: 12/20/19 - Critical Care Critical Care patient: No
[2019-12-21 04:00] VITALS: BMI 28.5
[2019-12-21 08:14] LABS: BASO % 0.6 % (0-2.0); EOS % 0.7 % (0-4.5); HEMATOCRIT 42.6 % (35.4-49); HEMOGLOBIN 14.7 GM/dL (11.7-16.9); LYMPH % 34.5 % (8-40); MCH 29.7 pg (25.7-33.7); MCHC 34.5 g/dl (32.0-35.9); MEAN CELL VOLUME 85.9 fl (80-96); MEAN PLT VOLUME 8.8 fl (7.5-11.1); MONO % 8.2 % (3.8-10.2); PLATELET COUNT 264 K/MM3 (134-434); RBC 4.95 M/mm3 (4.00-5.60); RDW 14.3 % (11.9-15.9)
[2019-12-21 08:49] LABS: ALBUMIN 3.6 g/dl (3.4-5.0); ALK PHOS 126 U/L (45-117); ANION GAP 8 MMOL/L (8-16); BILIRUBIN,TOTAL 0.5 mg/dL (0.2-1); BLOOD UREA NITROGEN 15.4 mg/dL (7-18); CALCIUM 8.9 mg/dL (8.5-10.1); CHLORIDE 105 mmol/L (98-107); CO2 25 mmol/L (21-32); GLUCOSE,RANDOM 84 mg/dL (74-106); PHOSPHOROUS 3.4 mg/dL (2.5-4.9); POTASSIUM 3.9 mmol/L (3.5-5.1); SGOT/AST 23 U/L (15-37); SGPT/ALT 29 U/L (13-61); SODIUM 138 mmol/L (136-145); TOT PROT 7.2 g/dl (6.4-8.2)
--- NOTE | 2019-12-21 08:53 | PN ---
Progress Note (short form) - Note Progress Note: third admission in a month for rapid afib converted to sinus mathieu after iv cardizem and rate control no symptoms at present has been complaint with his medications, in fact seen in office yesterday with heart rate of 50/min no dietary non compliance either CBC, BMP 12/21/19 05:56 12/21/19 05:56 Vital Signs Period Temp Pulse Resp BP Sys/Singh Pulse Ox Last 24 Hr 98 F-98.2 F 50-139 16-20 100-176/59-112 97-100 S1S2 RRR lungs cta abd soft nontender no edema paroxysmal afib HTN cont eliquis, sotalol, losartan ablation would be the treatment choice on the long run hopefully can arrange on monday
[2019-12-21] MEDS: SOTALOL HCL 80 MG TABLET (FP) PO SCH ×3 (09:56→21:23)
[2019-12-21] MEDS: LOSARTAN POTASSIUM 25 MG TABLET PO SCH (09:56)
--- NOTE | 2019-12-21 15:45 | EKG ---
Test Reason : Blood Pressure : / mmHG Vent. Rate : 052 BPM Atrial Rate : 052 BPM P-R Int : 158 ms QRS Dur : 096 ms QT Int : 402 ms P-R-T Axes : 011 000 019 degrees QTc Int : 373 ms SINUS BRADYCARDIA NONSPECIFIC ST ABNORMALITY BORDERLINE ECG Confirmed by MD NICOLASA, RIYA ([id number]) on 12/21/2019 3:44:48 PM Referred By: Confirmed By:RIYA BALDWIN MD
--- NOTE | 2019-12-21 15:58 | EKG ---
Test Reason : Blood Pressure : / mmHG Vent. Rate : 137 BPM Atrial Rate : 150 BPM P-R Int : 000 ms QRS Dur : 090 ms QT Int : 304 ms P-R-T Axes : 000 035 034 degrees QTc Int : 459 ms ATRIAL FIBRILLATION WITH RAPID VENTRICULAR RESPONSE NONSPECIFIC ST ABNORMALITY ABNORMAL ECG Confirmed by MD NICOLASA, RIYA ([id number]) on 12/21/2019 3:57:54 PM Referred By: Confirmed By:RIYA BALDWIN MD
[2019-12-22] MEDS: APIXABAN 5 MG TABLET PO SCH ×2 (09:45→22:47)
[2019-12-22] MEDS: SOTALOL HCL 80 MG TABLET (FP) PO SCH ×2 (09:45→22:47)
[2019-12-22] MEDS: LOSARTAN POTASSIUM 25 MG TABLET PO SCH (09:45)
--- NOTE | 2019-12-22 10:03 | PN ---
Progress Note, Physician History of Present Illness: 43y M with PMH of Afib, WPW, HTN, HLD, Cardiomyopathy presenting to ED with complaints of palpitations for 10-15 minutes of sudden onset palpitations. Pt has been seen here multiple times for RVR. Previously, pt was cardioverted by EMS and was started on procainamide drip which converted him. Pt endorses palpiations and SOB. He denies chest pain, headache, back pain, fevers, chills, n/v/d, recent surgery, recent travel. He states he is compliant with his meds ( Sotalol, Eliquis, Losartan). Denies heavy alcohol consumption. He has an appointment coming up next week with his advanced practice psychiatric nurse for discussion of ablation. Last EF on Echo 11/2019 40-45% - Current Medication List Current Medications: Active Medications Apixaban (Eliquis -) 5 mg PO BID [facility] Last Admin: 12/22/19 09:45 Dose: 5 mg Losartan Potassium (Cozaar -) 25 mg PO DAILY [facility] Last Admin: 12/22/19 09:45 Dose: 25 mg Sotalol HCl (Betapace -) 80 mg PO BID [facility] Last Admin: 12/22/19 09:45 Dose: 80 mg - Objective Vital Signs: Vital Signs Temperature 98 F 12/22/19 09:42 Pulse Rate 64 12/22/19 09:42 Respiratory Rate 18 12/22/19 09:42 Blood Pressure 140/90 12/22/19 09:42 O2 Sat by Pulse Oximetry (%) 97 12/21/19 21:00 Eyes: Yes: WNL, Conjunctiva Clear, EOM Intact HENT: Yes: WNL, Atraumatic, Normocephalic Neck: Yes: WNL, Supple, Trachea Midline Cardiovascular: Yes: WNL, Regular Rate and Rhythm Respiratory: Yes: WNL, Regular, CTA Bilaterally Gastrointestinal: Yes: WNL, Normal Bowel Sounds Genitourinary: Yes: WNL Musculoskeletal: Yes: WNL Extremities: Yes: WNL Edema: No Integumentary: Yes: WNL Neurological: Yes: WNL, Alert, Oriented ...Motor Strength: WNL Psychiatric: Yes: WNL Labs: CBC, BMP 12/21/19 05:56 12/21/19 05:56 INR, PTT INR 0.98 (0.83-1.09) 12/20/19 20:00 Problem List - Problems (1) Rapid atrial fibrillation Code(s): I48.91 - UNSPECIFIED ATRIAL FIBRILLATION (2) Chest pain Code(s): R07.9 - CHEST PAIN, UNSPECIFIED (3) Chest pain Code(s): R07.9 - CHEST PAIN, UNSPECIFIED Qualifiers: Chest pain type: precordial pain Qualified Code(s): R07.2 - Precordial pain (4) Demand ischemia Code(s): I24.8 - OTHER FORMS OF ACUTE ISCHEMIC HEART DISEASE (5) HLD (hyperlipidemia) Code(s): E78.5 - HYPERLIPIDEMIA, UNSPECIFIED Qualifiers: Hyperlipidemia type: unspecified Qualified Code(s): E78.5 - Hyperlipidemia , unspecified (6) HTN (hypertension) Code(s): I10 - ESSENTIAL (PRIMARY) HYPERTENSION Qualifiers: Hypertension type: essential hypertension Qualified Code(s): I10 - Essential (primary) hypertension (7) Overweight (BMI 25.0-29.9) Code(s): E66.3 - OVERWEIGHT (8) Palpitations Code(s): R00.2 - PALPITATIONS (9) Paroxysmal atrial fibrillation Code(s): I48.0 - PAROXYSMAL ATRIAL FIBRILLATION (10) Systolic dysfunction without heart failure Code(s): I51.89 - OTHER ILL-DEFINED HEART DISEASES (11) WPW (Mzrar-Ebxifwuoc-Immky syndrome) Code(s): I45.6 - PRE-EXCITATION SYNDROME Assessment/Plan Imp; PAF in NSR HTN Mildly reduced EF 45-50 Plan; cont Sotalol and Cardizem cont AC EP evaluation for posible AFablation cont telemetry Coverage for dr. Luna
--- NOTE | 2019-12-22 11:38 | PN ---
Progress Note (short form) - Note Progress Note: Comfortable telemetry has no arrhythmia sinus bradycardia. Vital Signs Period Temp Pulse Resp BP Sys/Singh Pulse Ox Last 24 Hr 97.4 F-98.2 F 46-64 18-18 119-140/67-90 97 Review of systems negative Head no headache no dizziness Ear nose throat no epistaxis Cardiovascular no chest pain Pulmonary no wheezing no coughing GI no abdominal pain Endocrine no history of diabetes hypothyroidism Neuro no history of stroke Dermatology no history of stroke Locomotor no history of joint pain Rest of review of systems are negative Patient is comfortable HEENT normal Neck supple no JVD Lungs clear no wheezing Abdomen nontender no organomegaly bowel sounds normal Extremities no edema no cyanosis normal pulses Neurologically he is alert awake oriented, nonfocal Skin no rash noted Atrial fibrillation Continue sotalol and Cardizem patient was in need ablation and EP evaluation.
[2019-12-23 09:08] VITALS: BP 125/92; PULSE 56; TEMP 98
[2019-12-23] MEDS: SOTALOL HCL 80 MG TABLET (FP) PO SCH (10:18)
[2019-12-23] MEDS: APIXABAN 5 MG TABLET PO SCH (10:18)
[2019-12-23] MEDS: LOSARTAN POTASSIUM 25 MG TABLET PO SCH (10:18)
--- NOTE | 2019-12-23 10:55 | PN ---
Progress Note, Physician Chief Complaint: Events noted Currently not in distress History of Present Illness: Patient was seen and examined. Awake and alert. Chart was reviewed Denies chest pain, SOB or palpitations Remains in sinus bradycardia - Current Medication List Current Medications: Active Medications Apixaban (Eliquis -) 5 mg PO BID [facility] Last Admin: 12/23/19 10:18 Dose: 5 mg Losartan Potassium (Cozaar -) 25 mg PO DAILY [facility] Last Admin: 12/23/19 10:18 Dose: 25 mg Sotalol HCl (Betapace -) 80 mg PO BID [facility] Last Admin: 12/23/19 10:18 Dose: 80 mg - Objective Vital Signs: Vital Signs Temperature 98 F 12/23/19 09:00 Pulse Rate 56 L 12/23/19 09:00 Respiratory Rate 18 12/23/19 09:00 Blood Pressure 125/92 12/23/19 09:00 O2 Sat by Pulse Oximetry (%) 98 12/22/19 09:00 Eyes: Yes: PERRL HENT: Yes: Atraumatic Neck: Yes: Supple Cardiovascular: Yes: Bradycardia, S1, S2 Respiratory: Yes: CTA Bilaterally Gastrointestinal: Yes: Normal Bowel Sounds, Soft. No: Tenderness Edema: No Labs: CBC, BMP 12/21/19 05:56 12/21/19 05:56 Problem List - Problems (1) HLD (hyperlipidemia) Code(s): E78.5 - HYPERLIPIDEMIA, UNSPECIFIED Qualifiers: Hyperlipidemia type: pure hypercholesterolemia Qualified Code(s): E78.00 - Pure hypercholesterolemia, unspecified; E78.0 - Pure hypercholesterolemia (2) HTN (hypertension) Code(s): I10 - ESSENTIAL (PRIMARY) HYPERTENSION Qualifiers: Hypertension type: essential hypertension Qualified Code(s): I10 - Essential (primary) hypertension (3) Palpitations Code(s): R00.2 - PALPITATIONS (4) Paroxysmal atrial fibrillation Code(s): I48.0 - PAROXYSMAL ATRIAL FIBRILLATION (5) Systolic dysfunction without heart failure Code(s): I51.89 - OTHER ILL-DEFINED HEART DISEASES (6) WPW (Wqhux-Zydviqoqv-Fbhvg syndrome) Code(s): I45.6 - PRE-EXCITATION SYNDROME Assessment/Plan 1. PAF currently in sinus rhythm 2. HTN 3. LV systolic dyfunction (mildly reduced LVEF) PLAN: 1. Continue Sotalol 80 mg BID. Currently not on Cardizem 2. Losartan 25 mg QD 3. Eliquis 5 mg BID 4. EP evaluation with possible pulmonary isolation and AF ablation can be considered as outpatient Further plans are to follow Alfredo Luna MD
--- NOTE | 2019-12-23 15:12 | DS ---
Physical Examination Vital Signs: Vital Signs Temperature 98 F 12/23/19 09:00 Pulse Rate 56 L 12/23/19 09:00 Respiratory Rate 18 12/23/19 09:00 Blood Pressure 125/92 12/23/19 09:00 O2 Sat by Pulse Oximetry (%) 98 12/23/19 09:00 Labs: CBC, BMP 12/21/19 05:56 12/21/19 05:56 Discharge Summary Problems reviewed: Yes Reason For Visit: PALPITATIONS,RAPID ATRIAL FIBRILLATION Hospital Course: third admission in a month for rapid afib converted to sinus mathieu after iv cardizem and rate control no symptoms at present, remained in sinus bradycardia throughout hospital stay has been complaint with his medications will follow up for outpt ep studies Condition: Stable - Instructions Referrals: Zara Pope MD [Primary Care Provider] - Disposition: HOME - Home Medications Comprehensive Discharge Medication List: Ambulatory Orders Apixaban [Eliquis -] 5 mg PO BID #30 tablet 12/07/19 Losartan Potassium [Cozaar -] 25 mg PO DAILY tablet 12/07/19 Sotalol HCl [Betapace -] 80 mg PO BID 30 Days #60 tablet 12/07/19
== END 2019-12-23 14:29 | disposition home or self-care (01) | DRG 201 ==
LOC: JER 19:25 → JERBED 21:34 → J4W 12-21 01:10
PROVIDERS: ADMIT Internal Medicine; ATTEND Internal Medicine
DX: I48.0 Paroxysmal atrial fibrillation (principal); I45.6 Pre-excitation syndrome; I42.9 Cardiomyopathy, unspecified; I10 Essential (primary) hypertension; R00.2 Palpitations; R00.1 Bradycardia, unspecified; Z68.28 Body mass index [BMI] 28.0-28.9, adult; E78.5 Hyperlipidemia, unspecified; E66.9 Obesity, unspecified
CPT/HCPCS: 36415; 36600; 71045-TC-FY; 80053; 82550; 82803; 84100; 84484; 85025; 85610; 93005; 93010; 99285-25

== ENCOUNTER 2019-12-26 02:36 | Inpatient (IN) | payer OTHER ==
--- NOTE | 2019-12-26 03:02 | PDOC ---
Attending Attestation - Resident Resident Name: Elio Turner - ED Attending Attestation I have performed the following: I have examined & evaluated the patient, The case was reviewed & discussed with the resident, I agree w/resident's findings & plan - HPI HPI: 12/26/19 03:56 see resident hpi - Physicial Exam PE: 12/26/19 03:57 see resident exam - Medical Decision Making 12/26/19 03:[id number] male with palpitations, arriving with rapid A. fib Patient has a history of WPW Per patient he response to procainamide, drip started at 3 mg/min with plans to titrate as needed ICU consult for admission
--- NOTE | 2019-12-26 03:12 | PDOC ---
History of Present Illness - General Chief Complaint: Palpitations Stated Complaint: PALPITATIONS Time Seen by Provider: 12/26/19 03:01 - History of Present Illness Initial Comments: Mr. 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 Reports that he has had this several times before. Reports shortness of breath worse on exertion. Denies headache/dizziness. Denies chest pain. Denies abdominal pain. Denies LE swelling. Denies nausea/vomiting. Beta Arleen given by EMS (Core Measure): No Beta Arleen taken at Home (Core Measure): Yes (50 mg po) Past History - Past Medical History Allergies/Adverse Reactions: Allergies Allergy/AdvReac Type Severity Reaction Status Date / Time No Known Allergies Allergy Verified 12/26/19 02:55 Home Medications: Ambulatory Orders Apixaban [Eliquis -] 5 mg PO BID #30 tablet 12/07/19 Losartan Potassium [Cozaar -] 25 mg PO DAILY tablet 12/07/19 Sotalol HCl [Betapace -] 80 mg PO BID 30 Days #60 tablet 12/07/19 Anemia: No Asthma: No Cancer: No Cardiac Disorders: Yes (Paroxysmal A-Fib) CVA: No COPD: No CHF: No Dementia: No Diabetes: No GI Disorders: No Disorders: Yes (Renal stones) HTN: Yes Hypercholesterolemia: Yes Kidney Stones: Yes Seizures: No Thyroid Disease: Yes (Elevated TSH) - Surgical History Cardiac Surgery: No (Cardioverted (2 shocks) - 12/06/2019) Orthopedic Surgery: Yes - Immunization History Immunization Up to Date: Yes - Psycho Social/Smoking Cessation Hx Smoking Status: No Smoking History: Never smoked Have you smoked in the past 12 months: No Number of Cigarettes Smoked Daily: 0 Cigars Per Day: 0 Hx Alcohol Use: No Drug/Substance Use Hx: No Substance Use Type: None Hx Substance Use Treatment: No Cardiac Specific PMH - Complaint Specific PMHX Pacemaker: No Review of Systems - Review of Systems Comments:: GENERAL/CONSTITUTIONAL: No fever or chills. No weakness._ HEAD, EYES, EARS, NOSE AND THROAT: No change in vision. No change in hearing. No sore throat._ CARDIOVASCULAR: No chest pain. Reports heart palpitations. Reports shortness of breath. RESPIRATORY: Denies cough, hemoptysis_ GASTROINTESTINAL: No nausea, vomiting, diarrhea or constipation._ GENITOURINARY: No dysuria, frequency, or change in urination._ MUSCULOSKELETAL: No joint or muscle swelling or pain. No neck or back pain._ SKIN: No rash_ NEUROLOGIC: No headache, vertigo, loss of consciousness, or change in strength/ sensation._ ENDOCRINE: No increased thirst. No abnormal weight change_ HEMATOLOGIC/LYMPHATIC: No anemia, easy bleeding, or history of blood clots._ ALLERGIC/IMMUNOLOGIC: No hives or skin allergy._ *Physical Exam - Vital Signs Last Vital Signs Temp Pulse Resp BP Pulse Ox 97.8 F 46 L 20 126/74 97 12/26/19 17:00 12/26/19 17:00 12/26/19 17:00 12/26/19 17:00 12/26/19 17:00 - Physical Exam GENERAL: Awake, alert, and oriented to person/place/time, in no acute distress_ HEAD: No signs of trauma, normoc ephalic, atraumatic _ EYES: PERRLA, EOMI, sclera anicteric, conjunctiva clear_ ENT: Hearing grossly normal, nares patent, oropharynx clear without exudates. No uvular deviation. Moist mucosa_ NECK: Normal ROM, supple, no lymphadenopathy, JVD, or masses_ LUNGS: No distress, speaks in full sentences, clear to auscultation bilaterally _ HEART: Tachycardia, irregular rhythm, normal S1 and S2, no murmurs appreciated, peripheral pulses normal and equal bilaterally._ ABDOMEN: Soft, nontender, normoactive bowel sounds. No guarding, no rebound. No masses_ EXTREMITIES: Normal inspection, Normal range of motion, no edema. No clubbing or cyanosis_ NEUROLOGICAL: Cranial nerves II through XII grossly intact. Normal speech, normal gait, no focal sensorimotor deficits _ SKIN: Warm, Dry, normal turgor, no rashes or lesions noted_ ED Treatment Course - LABORATORY CBC & Chemistry Diagram: 12/26/19 03:10 12/26/19 03:10 - ADDITIONAL ORDERS Additional order review: 12/26/19 03:10 RBC 5.01 MCV 87.4 MCHC 33.9 RDW 14.3 MPV 8.6 Neutrophils % 45.7 Lymphocytes % 43.6 H D Monocytes % 8.9 Eosinophils % 1.1 Basophils % 0.7 - RADIOLOGY Radiology Studies Ordered: Category Date Time Status CHEST X-RAY PORTABLE* [RAD] Stat Radiology 12/26/19 03:09 Completed - Medications Given in the ED: ED Medications Discontinued Medications Generic Name Dose Route Start Last Admin Trade Name Kirk PRN Reason Stop Dose Admin Procainamide HCl 2,000 mg/ 500 mls @ 15 mls/hr 12/26/19 03:15 12/26/19 04:07 Dextrose IVPB 1 mg/min TITR JAVIER 15 mls/hr Administration Protocol 1 MG/MIN Medical Decision Making - Medical Decision Making 12/26/19 03:11 44M presenting in a-fib with RVR -cbc, cmp, mg, phos, tsh -ekg, trop, cxr -procainamide drip EKG shows a-fib with RVR, 134 bpm, no ST elevation, QTc 450. 12/26/19 04:25 Pt reassessed. Monitor shows sinus rhythm. EKG#2 after procainamide drip started shows sinus bradycardia, 59 bpm, no ST elevation, QTc 380. 12/26/19 05:11 D/w the case with [employer] Daisy Moran who accepts the patient for admission. Call placed to Dr. Wheeler's office. Labs reviewed. Laboratory Tests 12/26/19 12/26/19 03:10 03:10 WBC 8.6 RBC 5.01 Hgb 14.8 Hct 43.8 MCV 87.4 MCH 29.6 MCHC 33.9 RDW 14.3 Plt Count 284 MPV 8.6 Absolute Neuts (auto) 3.9 Neutrophils % 45.7 Lymphocytes % 43.6 H D Monocytes % 8.9 Eosinophils % 1.1 Basophils % 0.7 Nucleated RBC % 0 Sodium 139 Potassium 4.3 Chloride 107 Carbon Dioxide 27 Anion Gap 5 L BUN 16.2 Creatinine 1.0 Est GFR (CKD-EPI)AfAm 104.15 Est GFR (CKD-EPI)NonAf 89.86 Random Glucose 92 Calcium 8.6 Phosphorus 2.7 Magnesium 2.2 Total Bilirubin 0.2 AST 31 ALT 30 Alkaline Phosphatase 131 H Creatine Kinase 82 Troponin I < 0.02 Total Protein 7.5 Albumin 3.6 TSH 11.00 H D Discharge - Discharge Information Problems reviewed: Yes Clinical Impression/Diagnosis: WPW (Jqqej-Xroalwzjc-Fnfun syndrome), Atrial fibrillation with RVR Condition: Fair - Admission Yes - Follow up/Referral - Patient Discharge Instructions - Post Discharge Activity
[2019-12-26] MEDS ORDERED: WATER IVPB SCH (03:15)
[2019-12-26] MEDS ORDERED: DEXTROSE 5% IVPB SCH (03:15)
[2019-12-26] MEDS ORDERED: PROCAINAMIDE HCL IVPB SCH (03:15)
[2019-12-26 03:33] LABS: BASO % 0.7 % (0-2.0); EOS % 1.1 % (0-4.5); HEMATOCRIT 43.8 % (35.4-49); HEMOGLOBIN 14.8 GM/dL (11.7-16.9); LYMPH % 43.6 % (8-40); MCH 29.6 pg (25.7-33.7); MCHC 33.9 g/dl (32.0-35.9); MEAN CELL VOLUME 87.4 fl (80-96); MEAN PLT VOLUME 8.6 fl (7.5-11.1); MONO % 8.9 % (3.8-10.2); NEUT % 45.7 % (42.8-82.8); PLATELET COUNT 284 K/MM3 (134-434); RBC 5.01 M/mm3 (4.00-5.60); RDW 14.3 % (11.9-15.9); WHITE BLOOD COUNT 8.6 K/mm3 (4.0-10.0)
--- NOTE | 2019-12-26 05:50 | CONSULT ---
Consultation: REQUESTING PROVIDER: CONSULT REQUEST: We have been asked to medically evaluate this patient for A-fib w/ RVR on procainamide drip. HISTORY OF PRESENT ILLNESS: 43 y.o. M PMH HTN, A-fib on eliquis, HLD, multiple recent admissions for A-fib w/ RVR this month, admitted now for A-fib w/ RVR rate 160s. The patient endorses feeling palpitations similar to last admission. State he has minimal chest pain, 1-12/30. EKG showing A-fib w/ RVR rate 134, delta waves indicative of WPW (also seen on prior admissions). Procainamide drip initiated in ED w/ resolution of HR to 50's. Patient sees Dr. Luna outpatient and has been compliant with all medications since his outpatient cardiology visit. REVIEW OF SYSTEMS: CONSTITUTIONAL: Absent: fever, chills, diaphoresis, generalized weakness, malaise, loss of appetite, weight change HEENT: Absent: rhinorrhea, nasal congestion, throat pain, throat swelling, difficulty swallowing, mouth swelling, ear pain, eye pain, visual changes CARDIOVASCULAR: Absent: chest pain, syncope, palpitations, irregular heart rate, lightheadedness , peripheral edema RESPIRATORY: Absent: cough, shortness of breath, dyspnea with exertion, orthopnea, wheezing, stridor, hemoptysis GASTROINTESTINAL: Absent: abdominal pain, abdominal distension, nausea, vomiting, diarrhea, constipation, melena, hematochezia GENITOURINARY: Absent: dysuria, frequency, urgency, hesitancy, hematuria, flank pain, genital pain MUSCULOSKELETAL: Absent: myalgia, arthralgia, joint swelling, back pain, neck pain SKIN: Absent: rash, itching, pallor HEMATOLOGIC/IMMUNOLOGIC: Absent: easy bleeding, easy bruising, lymphadenopathy, frequent infections ENDOCRINE: Absent: unexplained weight gain, unexplained weight loss, heat intolerance, cold intolerance NEUROLOGIC: Absent: headache, focal weakness or paresthesias, dizziness, unsteady gait, seizure, mental status changes, bladder or bowel incontinence PSYCHIATRIC: Absent: anxiety, depression, suicidal or homicidal ideation, hallucinations. PHYSICAL EXAMINATION Vital Signs - 24 hr 12/26/19 12/26/19 12/26/19 02:52 04:00 04:30 Temperature 97.4 F L Pulse Rate 61 Pulse Rate [ 165 H 71 Radial] Respiratory 18 20 18 Rate Blood Pressure 149/100 Blood Pressure 109/100 140/96 [Left] O2 Sat by Pulse 99 100 100 Oximetry (%) 12/26/19 04:35 Temperature Pulse Rate Pulse Rate [ Radial] Respiratory Rate Blood Pressure Blood Pressure [Left] O2 Sat by Pulse 100 Oximetry (%) GENERAL: Awake, alert, and fully oriented, in no acute distress. HEENT: NCAT. Sclera clear no icterus. No JVD LUNGS: Breath sounds equal, clear to auscultation bilaterally. No wheezes, and no crackles. No accessory muscle use. HEART: RRR, normal S1 and S2 without murmurs ABDOMEN: Soft, nontender, not distended, normoactive bowel sounds, no guarding EXTREMITIES: 2+ pulses, warm, well-perfused. No peripheral edema. NEUROLOGICAL: Cranial nerves II-XII intact. PSYCHIATRIC: Cooperative. Good eye contact. Appropriate mood and affect. SKIN: Warm, dry, normal turgor, no rashes or lesions noted. Laboratory Results - last 24 hr 12/26/19 03:10 WBC 8.6 RBC 5.01 Hgb 14.8 Hct 43.8 MCV 87.4 MCH 29.6 MCHC 33.9 RDW 14.3 Plt Count 284 MPV 8.6 Absolute Neuts (auto) 3.9 Neutrophils % 45.7 Lymphocytes % 43.6 H D Monocytes % 8.9 Eosinophils % 1.1 Basophils % 0.7 Nucleated RBC % 0 Active Medications Generic Name Dose Route Start Last Admin Trade Name Freq PRN Reason Stop Dose Admin Procainamide HCl 2,000 mg/ 500 mls @ 15 mls/hr 12/26/19 03:15 12/26/19 04:07 Dextrose IVPB 1 mg/min TITR JAVIER 15 mls/hr Administration Protocol 1 MG/MIN ASSESSMENT/PLAN: 43 y.o. M PMH HTN, A-fib on eliquis, HLD, multiple recent admissions for A-fib w/ RVR this month, admitted today for A-fib w/ RVR rate 160s #CV -Hx of WPW, A-fib, HTN -restart home BP meds; sotalol 80mg BID, losartan 25 daily, eliquis 5mg BID -on procainamide drip for WPW -EKG: a-fib w/ RVR to 140's, repeat ekg rate 59. Delta waves seen in leads II, avF. qtc 450 (1st ekg), 380 on 2nd ekg done 1 hr after procainamide drip started. -echo 12/05/2019 showed EF 45-50%, mild cardiomyopathy -f/u cardio recs-- as per prior cardio notes possible ablation if uncontrolled -[id number] 1 #PPX -continue eliquis #FENLTD -no standing fluids -trend lytes replete prn -NPO -peripheral lines Dispo: We will continue to follow the patient. Thank you for this consultative opportunity. Visit type - Emergency Visit Emergency Visit: Yes ED Registration Date: 12/26/19 Care time: The patient presented to the Emergency Department on the above date and was hospitalized for further evaluation of their emergent condition. - New Patient This patient is new to me today: Yes Date on this admission: 12/26/19 - Critical Care Critical Care patient: Yes Total Critical Care Time (in minutes): 45 Critical Care Statement: The care of this patient involved high complexity decision making to prevent further life threatening deterioration of the patient's condition and/or to evaluate & treat vital organ system(s) failure or risk of failure. ATTENDING PHYSICIAN STATEMENT I saw and evaluated the patient. I reviewed the resident's note and discussed the case with the resident. I agree with the resident's findings and plan as documented. SUBJECTIVE: OBJECTIVE: ASSESSMENT AND PLAN:
[2019-12-26 06:09] LABS: ALK PHOS 131 U/L (45-117)
[2019-12-26 06:13] LABS: ALBUMIN 3.6 g/dl (3.4-5.0); ANION GAP 5 MMOL/L (8-16); BILIRUBIN,TOTAL 0.2 mg/dL (0.2-1); BLOOD UREA NITROGEN 16.2 mg/dL (7-18); CALCIUM 8.6 mg/dL (8.5-10.1); CHLORIDE 107 mmol/L (98-107); CO2 27 mmol/L (21-32); GLUCOSE,RANDOM 92 mg/dL (74-106); MAGNESIUM 2.2 mg/dL (1.8-2.4); PHOSPHOROUS 2.7 mg/dL (2.5-4.9); POTASSIUM 4.3 mmol/L (3.5-5.1); SGOT/AST 31 U/L (15-37); SGPT/ALT 30 U/L (13-61); SODIUM 139 mmol/L (136-145); TOT PROT 7.5 g/dl (6.4-8.2)
--- NOTE | 2019-12-26 06:46 | HP ---
Admitting History and Physical - Primary Care Physician PCP: Zara Pope - Admission Chief Complaint: Palpitations History of Present Illness: This a 44 y/o man with a PMHx of WPW (on sotalol), Paroxysmal A-fib (on Eliquis ), HTN, HLD, recent admissions x3 for Afib with RVR. Who presents to the ED with heart palpitations that started at 2am. Patient reports that he has had this several times before. He reports having shortness of breath worse on exertion. Patient reports being scheduled for an ablation, but is awaiting insurance approval. Patient denies fever, chills, cough, PICKARD, CP, AP, N/V/D, constipation, dysuria. History Source: Patient Limitations to Obtaining History: No Limitations - Past Medical History Cardiovascular: Yes: AFIB (Paroxysmal since .), HTN, Hyperlipdemia ( ), Other (WPW) Renal/: Yes: Renal Calculi - Past Surgical History Additional Past Surgical History: Cardioversion - Smoking History Smoking history: Never smoked Have you smoked in the past 12 months: No Aproximately how many cigarettes per day: 0 - Alcohol/Substance Use Hx Alcohol Use: No History of Substance Use: reports: None - Social History Usual Living Arrangement: Yes: With Spouse Do you think of yourself as: Straight/Heterosexual ADL: Independent History of Recent Travel: No Home Medications - Allergies Allergies/Adverse Reactions: Allergies Allergy/AdvReac Type Severity Reaction Status Date / Time No Known Allergies Allergy Verified 12/26/19 02:55 - Home Medications Home Medications: Ambulatory Orders Apixaban [Eliquis -] 5 mg PO BID #30 tablet 12/07/19 Losartan Potassium [Cozaar -] 25 mg PO DAILY tablet 12/07/19 Sotalol HCl [Betapace -] 80 mg PO BID 30 Days #60 tablet 12/07/19 Family Medical History Family Hx Coronary Artery Disease: Mother (HTN) Review of Systems - Review of Systems Constitutional: reports: No Symptoms Eyes: reports: No Symptoms HENT: reports: No Symptoms Neck: reports: No Symptoms Cardiovascular: reports: Palpitations, Shortness of Breath Respiratory: reports: SOB, SOB on Exertion Gastrointestinal: reports: No Symptoms Genitourinary: reports: No Symptoms Breasts: reports: No Symptoms Reported Musculoskeletal: reports: No Symptoms Integumentary: reports: No Symptoms Neurological: reports: No Symptoms Endocrine: reports: No Symptoms Hematology/Lymphatic: reports: No Symptoms Psychiatric: reports: No Symptoms Physical Examination Vital Signs: Vital Signs Temperature 97.4 F L 12/26/19 02:52 Pulse Rate 53 L 12/26/19 06:29 Respiratory Rate 18 12/26/19 06:29 Blood Pressure 127/80 12/26/19 06:29 O2 Sat by Pulse Oximetry (%) 98 12/26/19 06:29 Constitutional: Yes: Well Nourished, No Distress, Calm Eyes: Yes: WNL, Conjunctiva Clear, EOM Intact, PERRL HENT: Yes: WNL, Atraumatic, Normocephalic Neck: Yes: WNL, Supple, Trachea Midline Cardiovascular: Yes: Tachycardia, Pulse Irregular, Murmur, S1, S2 Respiratory: Yes: WNL, Regular, CTA Bilaterally Gastrointestinal: Yes: WNL, Normal Bowel Sounds, Soft ...Rectal Exam: Yes: Deferred Renal/: Yes: WNL Breast(s): Yes: WNL Musculoskeletal: Yes: WNL Extremities: Yes: WNL Edema: No Peripheral Pulses WNL: Yes Integumentary: Yes: WNL Neurological: Yes: WNL, Alert, Oriented, Cran Nerves II-XII Intact ...Motor Strength: WNL Psychiatric: Yes: WNL, Alert, Oriented Labs: CBC, BMP 12/26/19 03:10 12/26/19 03:10 Laboratory Results - last 24 hr 12/26/19 12/26/19 03:10 03:10 WBC 8.6 RBC 5.01 Hgb 14.8 Hct 43.8 MCV 87.4 MCH 29.6 MCHC 33.9 RDW 14.3 Plt Count 284 MPV 8.6 Absolute Neuts (auto) 3.9 Neutrophils % 45.7 Lymphocytes % 43.6 H D Monocytes % 8.9 Eosinophils % 1.1 Basophils % 0.7 Nucleated RBC % 0 Sodium 139 Potassium 4.3 Chloride 107 Carbon Dioxide 27 Anion Gap 5 L BUN 16.2 Creatinine 1.0 Est GFR (CKD-EPI)AfAm 104.15 Est GFR (CKD-EPI)NonAf 89.86 Random Glucose 92 Calcium 8.6 Phosphorus 2.7 Magnesium 2.2 Total Bilirubin 0.2 AST 31 ALT 30 Alkaline Phosphatase 131 H Creatine Kinase 82 Troponin I < 0.02 Total Protein 7.5 Albumin 3.6 TSH 11.00 H D Intake & Output 12/23/19 12/24/19 12/25/19 12/26/19 23:59 23:59 23:59 23:59 Weight 97.522 kg Imaging - Results Chest X-ray: Image Reviewed EKG: Image Reviewed Problem List - Problems (1) Rapid atrial fibrillation Assessment/Plan: Continue cardiac monitoring Continue Procainamide Drip, titrate accordingly Appreciate Cardiology consult Continue Eliquis Echo 12/05/19- ef 45-50% lvsf-mildly reduced, rv-nl, trace tr [id number] Ablation- pending in outpatient awaiting insurance Code(s): I48.91 - UNSPECIFIED ATRIAL FIBRILLATION (2) WPW (Fkxkn-Xguwqxtge-Uffkr syndrome) Assessment/Plan: Continue cardiac monitoring Continue Procainamide Hold Sotalol- defer to cardiology Code(s): I45.6 - PRE-EXCITATION SYNDROME (3) Systolic dysfunction without heart failure Assessment/Plan: Echo 12/05/19- ef 45-50%, lvsf mildly reduced, rv normal size/function, trace tr Continue Losartan Code(s): I51.89 - OTHER ILL-DEFINED HEART DISEASES (4) HLD (hyperlipidemia) Assessment/Plan: no current med- defer Cardiology Low Cholesterol Diet Code(s): E78.5 - HYPERLIPIDEMIA, UNSPECIFIED Qualifiers: Hyperlipidemia type: pure hypercholesterolemia Qualified Code(s): E78.00 - Pure hypercholesterolemia, unspecified; E78.0 - Pure hypercholesterolemia (5) HTN (hypertension) Assessment/Plan: stable Continue Losartan Hold Sotalol- while on Procainamide Drip Monitor BP Monitor renal function Code(s): I10 - ESSENTIAL (PRIMARY) HYPERTENSION Qualifiers: Hypertension type: essential hypertension Qualified Code(s): I10 - Essential (primary) hypertension (6) Overweight (BMI 25.0-29.9) Assessment/Plan: counseled on weight reduction Code(s): E66.3 - OVERWEIGHT Assessment/Plan This is a 44 y/o man admitted to ICU for Afib with RVR, SOB for further evaluation of their emergent condition. Plan: See Problem List FEN Replete lytes NPO DVT ppx OOB SCDs Continue Eliquis Code Status: Full Code Dispo: Requires Inpatient Care Visit type - Emergency Visit Emergency Visit: Yes ED Registration Date: 12/26/19 Care time: The patient presented to the Emergency Department on the above date and was hospitalized for further evaluation of their emergent condition. - New Patient This patient is new to me today: Yes Date on this admission: 12/26/19 - Critical Care Critical Care patient: Yes Total Critical Care Time (in minutes): 35 Critical Care Statement: The care of this patient involved high complexity decision making to prevent further life threatening deterioration of the patient 's condition and/or to evaluate & treat vital organ system(s) failure or risk of failure.
--- NOTE | 2019-12-26 08:52 | PN ---
Progress Note (short form) - Note Progress Note: recurrent afib on procainamide drip in sinus mathieu at present CBC, BMP 12/26/19 03:10 12/26/19 03:10 Vital Signs Period Temp Pulse Resp BP Sys/Singh Pulse Ox Last 24 Hr 97.4 F 53-165 18-20 109-149/80-100 98-100 s1s2 mathieu lungs cta abd soft no edema aaox3 parox afib procainamide cont sotalol, eliquis, losartan cardiology f/up for ablation
[2019-12-26] MEDS ORDERED: LOSARTAN POTASSIUM 25 MG TABLET PO SCH (10:00)
[2019-12-26] MEDS ORDERED: MUPIROCIN 2% TOPICAL OINTMENT FOR DECOLONIZATION NS SCH ×2 (10:00→22:00)
[2019-12-26 10:10] VITALS: BMI 28.1
[2019-12-26] MEDS: APIXABAN 5 MG TABLET PO SCH ×2 (10:13→22:29)
--- NOTE | 2019-12-26 10:15 | CON.CARD ---
Consult Consult Specialty:: Cardiology Referred by:: Ivonne Luna MD Reason for Consultation:: Recurrent PAF with RVR - History of Present Illness Chief Complaint: Recurrent Palpitations History of Present Illness: 44 y M with PMH of Afib, WPW, HTN, HLD, Cardiomyopathy presented to ED with complaints of recurrent palpitations, has been seen here multiple times for RVR. Previously, pt was direct current cardioverted by EMS, previously cardioverted with procainamide drip and restarted yesterday back to NSR. Pt endorses palpiations and SOB. He denies chest pain, near or true syncope, orthopnea, PND or LE edemal. He states he is compliant with his meds (Sotalol, Eliquis, Losartan). Denies heavy alcohol consumption. 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 Last EF on Echo 11/2019 40-45% - History Source History Provided By: Patient Limitations to Obtaining History: No Limitations - Past Medical History Cardio/Vascular: Yes: AFIB (Paroxysmal since .), HTN, Hyperlipdemia ( ) Renal/: Yes: Renal Calculi - Past Surgical History Past Surgical History: Yes: None - Alcohol/Substance Use Hx Alcohol Use: No History of Substance Use: reports: None - Smoking History Smoking history: Never smoked Have you smoked in the past 12 months: No Aproximately how many cigarettes per day: 0 - Social History ADL: Independent History of Recent Travel: No Home Medications - Allergies Allergies/Adverse Reactions: Allergies Allergy/AdvReac Type Severity Reaction Status Date / Time No Known Allergies Allergy Verified 12/26/19 02:55 - Home Medications Home Medications: Ambulatory Orders Apixaban [Eliquis -] 5 mg PO BID #30 tablet 12/07/19 Losartan Potassium [Cozaar -] 25 mg PO DAILY tablet 12/07/19 Sotalol HCl [Betapace -] 80 mg PO BID 30 Days #60 tablet 12/07/19 Review of Systems - Review of Systems Cardiovascular: reports: Palpitations, Shortness of Breath Respiratory: reports: SOB, SOB on Exertion Vital Signs: Vital Signs Temperature 98 F 12/26/19 10:06 Pulse Rate 56 L 12/26/19 10:06 Respiratory Rate 12 12/26/19 10:06 Blood Pressure 135/89 12/26/19 10:06 O2 Sat by Pulse Oximetry (%) 99 12/26/19 09:00 Constitutional: Yes: No Distress, Calm Neck: Yes: Supple Respiratory: Yes: Regular, CTA Bilaterally Gastrointestinal: Yes: Normal Bowel Sounds, Soft Cardiovascular: Yes: Regular Rate and Rhythm JVD: No Carotid Bruit: No Heart Sounds: Yes: S1, S2 Murmur: Yes: Systolic Murmur, Grade 1 Edema: No - Other Data Labs, Other Data: CBC, BMP 12/26/19 03:10 12/26/19 03:10 Troponin, BNP 12/26/19 12/26/19 03:10 08:53 Troponin I < 0.02 < 0.02 Troponin, BNP 12/26/19 12/26/19 03:10 08:53 Troponin I < 0.02 < 0.02 Afib @ 134 -> NSR 59 QTc 380 msec Ejection Fraction %: LVEF > or = 40 % Imaging - Results Chest X-ray: Report Reviewed (NAD) Problem List - Problems (1) Palpitations Code(s): R00.2 - PALPITATIONS (2) Paroxysmal atrial fibrillation Code(s): I48.0 - PAROXYSMAL ATRIAL FIBRILLATION (3) Systolic dysfunction without heart failure Code(s): I51.89 - OTHER ILL-DEFINED HEART DISEASES Assessment/Plan 12/05/2019 Echo: Mildly decreased LV EF 45-50%, normal RV size and fxn, tr TR. 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 1. Recurrent paroxysmal atrial fibrillation with RVR currently in sinus rhythm post procainamide 2. HTN heart disease 3. LV systolic dyfunction (mildly reduced LVEF) PLAN: 1. Increase Sotalol 80 mg TID. D/c Procainamide gtt 2. Losartan 25 mg QD 3. Eliquis 5 mg BID 4. EP evaluation with possible pulmonary isolation and AF ablation as outpatient pending clarification of insurance status 5. Thank you for consultative opportunity
[2019-12-26] MEDS: SOTALOL HCL 80 MG TABLET (FP) PO SCH ×3 (11:26→22:28)
--- NOTE | 2019-12-26 12:25 | PN ---
Teaching Attending Note Name of Resident: Zheng Rasheed ATTENDING PHYSICIAN STATEMENT I saw and evaluated the patient. I reviewed the resident's note and discussed the case with the resident. I agree with the resident's findings and plan as documented. SUBJECTIVE: Pt seen and examined in the ICU. Remains on procainamide gtt, now in sinus rhythm. Denies shortness of breath, chest pain, palpitations. OBJECTIVE: Vital Signs Period Temp Pulse Resp BP Sys/Singh Pulse Ox Last 24 Hr 97.4 F-98 F 48-165 12-99 109-152/80-100 97-100 Intake & Output 12/23/19 12/24/19 12/25/19 12/26/19 23:59 23:59 23:59 23:59 Intake Total 430 Output Total 300 Balance 130 Weight 96.8 kg Gen: NAD at rest Heart: RRR Lung: decreased breath sounds at the bases Abd: soft, nontender Ext: no edema CBC, BMP 12/26/19 03:10 12/26/19 03:10 Active Medications Apixaban (Eliquis -) 5 mg PO BID [facility] Last Admin: 12/26/19 10:13 Dose: 5 mg Chlorhexidine Gluconate (Hibiclens For Decolonization -) 1 applic TP HS [facility] Losartan Potassium (Cozaar -) 25 mg PO DAILY [facility] Last Admin: 12/26/19 10:13 Dose: 25 mg Mupirocin (Bactroban Ointment (For Decolonization) -) 1 applic NS BID [facility] Stop: 12/31/19 21:59 Sotalol HCl (Betapace -) 80 mg PO TID [facility] Last Admin: 12/26/19 11:26 Dose: 80 mg ASSESSMENT AND PLAN: Paroxysmal Atrial Fibrillation with RVR LV Systolic Dysfunction HTN - increase sotalol, stop procainamide gtt - continue anticoagulation - monitor QT, daily EKG - can monitor on telemetry
--- NOTE | 2019-12-26 14:25 | EKG ---
Test Reason : Blood Pressure : / mmHG Vent. Rate : 059 BPM Atrial Rate : 059 BPM P-R Int : 158 ms QRS Dur : 090 ms QT Int : 384 ms P-R-T Axes : 022 020 038 degrees QTc Int : 380 ms SINUS BRADYCARDIA OTHERWISE NORMAL ECG WHEN COMPARED WITH ECG OF 26-DEC-2019 02:57, SINUS RHYTHM HAS REPLACED ATRIAL FIBRILLATION VENT. RATE HAS DECREASED BY [address] NO LONGER DEPRESSED IN ANTERIOR LEADS Confirmed by ELLIOTT MARTIN MD ([id number]) on 12/26/2019 2:25:22 PM Referred By: Confirmed By:ELLIOTT MARTIN MD
[2019-12-26] MEDS ORDERED: CHLORHEXIDINE GLUCONATE 4% CLEANSER FOR DECOLONIZATION TP SCH (22:00)
[2019-12-27] MEDS: SOTALOL HCL 80 MG TABLET (FP) PO SCH (06:36)
[2019-12-27 07:37] LABS: BASO % 0.5 % (0-2.0); EOS % 1.2 % (0-4.5); HEMATOCRIT 41.2 % (35.4-49); LYMPH % 47.3 % (8-40); MCH 29.5 pg (25.7-33.7); MCHC 34.1 g/dl (32.0-35.9); MEAN CELL VOLUME 86.4 fl (80-96); MEAN PLT VOLUME 8.2 fl (7.5-11.1); MONO % 8.5 % (3.8-10.2); NEUT % 42.5 % (42.8-82.8); PLATELET COUNT 255 K/MM3 (134-434); RBC 4.76 M/mm3 (4.00-5.60); RDW 14.1 % (11.9-15.9); WHITE BLOOD COUNT 5.8 K/mm3 (4.0-10.0)
[2019-12-27 08:12] LABS: BLOOD UREA NITROGEN 17.9 mg/dL (7-18); CALCIUM 8.3 mg/dL (8.5-10.1); CREATININE 1.1 mg/dL (0.55-1.3); POTASSIUM 4.2 mmol/L (3.5-5.1)
--- NOTE | 2019-12-27 08:30 | PN ---
Progress Note (short form) - Note Progress Note: recurrent afib CBC, BMP 12/27/19 06:45 12/27/19 06:45 Vital Signs Period Temp Pulse Resp BP Sys/Singh Pulse Ox Last 24 Hr 97.5 F-98.2 F 41-59 12-99 118-152/56-99 97-99 hr close to 40-sotalol was not given s1s2 mathieu lungs cta abd soft no edema aaox3 parox afib cont sotalol, eliquis, losartan cardiology f/up for ablation ekg today
[2019-12-27] MEDS ORDERED: LOSARTAN POTASSIUM 25 MG TABLET PO SCH (10:00)
[2019-12-27] MEDS ORDERED: MUPIROCIN 2% TOPICAL OINTMENT FOR DECOLONIZATION NS SCH (10:00)
[2019-12-27] MEDS ORDERED: APIXABAN 5 MG TABLET PO SCH (10:00)
--- NOTE | 2019-12-27 10:03 | PN ---
Progress Note, Physician History of Present Illness: Sotalol held overnight due to SB 40's, resumed in AM. No recurrence of PAF with RVR, denies fatigue, dyspnea, weakness, near or true syncope. - Current Medication List Current Medications: Active Medications Apixaban (Eliquis -) 5 mg PO BID JAVIER Losartan Potassium (Cozaar -) 25 mg PO DAILY JAVIER Sotalol HCl (Betapace -) 80 mg PO TID JAVIER - Objective Vital Signs: Vital Signs Temperature 97.9 F 12/27/19 06:58 Pulse Rate 45 L 12/27/19 06:58 Respiratory Rate 18 12/27/19 06:58 Blood Pressure 124/60 12/27/19 06:58 O2 Sat by Pulse Oximetry (%) 98 12/26/19 21:00 Constitutional: Yes: No Distress, Calm Neck: Yes: Supple Cardiovascular: Yes: Bradycardia Respiratory: Yes: Regular, CTA Bilaterally Gastrointestinal: Yes: Normal Bowel Sounds, Soft Edema: No Labs: CBC, BMP 12/27/19 06:45 12/27/19 06:45 - ....Imaging EKG: Report Reviewed (Tele: SB 40s, w/o recurrence of PAF) Problem List - Problems (1) Palpitations Code(s): R00.2 - PALPITATIONS (2) Paroxysmal atrial fibrillation Code(s): I48.0 - PAROXYSMAL ATRIAL FIBRILLATION (3) Systolic dysfunction without heart failure Code(s): I51.89 - OTHER ILL-DEFINED HEART DISEASES Assessment/Plan 12/05/2019 Echo: Mildly decreased LV EF 45-50%, normal RV size and fxn, tr TR. 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 1. Recurrent paroxysmal atrial fibrillation with RVR currently in sinus rhythm post procainamide 2. HTN heart disease 3. LV systolic dyfunction (mildly reduced LVEF) PLAN: 1. Continue Sotalol 80 mg TID 2. Losartan 25 mg QD 3. Eliquis 5 mg BID 4. EP evaluation with possible pulmonary isolation and AF ablation as outpatient 5. D/c planning with f/u in office
[2019-12-27] MEDS ORDERED: SOTALOL HCL 80 MG TABLET (FP) PO ONE (10:15)
--- NOTE | 2019-12-27 11:25 | DS ---
Physical Examination Vital Signs: Vital Signs Temperature 97.9 F 12/27/19 10:00 Pulse Rate 64 12/27/19 10:00 Respiratory Rate 18 12/27/19 10:00 Blood Pressure 132/84 12/27/19 10:00 O2 Sat by Pulse Oximetry (%) 98 12/26/19 21:00 Constitutional: Yes: Calm Eyes: Yes: EOM Intact HENT: Yes: Normocephalic Neck: Yes: Trachea Midline Cardiovascular: Yes: Bradycardia Respiratory: Yes: CTA Bilaterally Gastrointestinal: Yes: Normal Bowel Sounds, Soft Edema: No Peripheral Pulses WNL: Yes Labs: CBC, BMP 12/27/19 06:45 12/27/19 06:45 Discharge Summary Problems reviewed: Yes Reason For Visit: RAPID ATRIAL FIBRILLATION Current Active Problems Atrial fibrillation with RVR (Acute) WPW (Uxjht-Flwaangbs-Mahte syndrome) (Acute) Hospital Course: 44 year old man with history of paroxysmal afib and HTN-last ef with mildly reduced LVSF and global hypokinesia admitted for the fourth time in 3 weeks for rapid afib. Was started on procainamide drip and converted back to sinus bradycardia. Has been compliant with his home medications and does not drink nor smoke. Previous admissions: 12.06.19 he was cardioverted to nsr en route to hospital in EMS. 12.14.19 converted to nsr with iv procainamide 12.20.19 was given iv cardizem and converted to nsr. during this admission he converted to nsr with iv procainamide. His sotalol dose was increased to 80 mg tid, he is in sinus mathieu 45-60/min without sympotms. he was recommended to follow up with cardiology for outpt ep studies. Condition: Fair - Instructions Referrals: Zara Pope MD [Primary Care Provider] - Disposition: HOME - Home Medications Comprehensive Discharge Medication List: Ambulatory Orders Apixaban [Eliquis -] 5 mg PO BID Losartan Potassium [Cozaar -] 25 mg PO DAILY Sotalol HCl [Betapace -] 80 mg PO TID Prescription Drug Monitoring Program (I-STOP) results: I-STOP not reviewed
--- NOTE | 2019-12-27 12:20 | EKG ---
Test Reason : Blood Pressure : / mmHG Vent. Rate : 046 BPM Atrial Rate : 046 BPM P-R Int : 154 ms QRS Dur : 100 ms QT Int : 438 ms P-R-T Axes : 019 005 031 degrees QTc Int : 383 ms SINUS BRADYCARDIA OTHERWISE NORMAL ECG WHEN COMPARED WITH ECG OF 26-DEC-2019 04:21, NO SIGNIFICANT CHANGE WAS FOUND Confirmed by HAROON ERICKSON MD ([id number]) on 12/27/2019 12:19:54 PM Referred By: Confirmed By:HAROON ERICKSON MD
[2019-12-27] MEDS ORDERED: SOTALOL HCL 80 MG TABLET (FP) PO SCH (14:00)
[2019-12-27 14:58] VITALS: BP 121/74; PULSE 61; TEMP 97.7
[2019-12-27] MEDS ORDERED: CHLORHEXIDINE GLUCONATE 4% CLEANSER FOR DECOLONIZATION TP SCH (22:00)
--- NOTE | 2019-12-28 14:35 | EKG ---
Test Reason : Blood Pressure : / mmHG Vent. Rate : 134 BPM Atrial Rate : 258 BPM P-R Int : 000 ms QRS Dur : 090 ms QT Int : 302 ms P-R-T Axes : 000 033 017 degrees QTc Int : 450 ms ATRIAL FIBRILLATION WITH RAPID VENTRICULAR RESPONSE WITH PREMATURE VENTRICULAR OR ABERRANTLY CONDUCTED COMPLEXES NONSPECIFIC ST ABNORMALITY ABNORMAL ECG Confirmed by MD LUCIO, LUCÍA ([id number]) on 12/28/2019 2:35:02 PM Referred By: Confirmed By:LUCÍA VALDES MD
== END 2019-12-27 15:50 | disposition home or self-care (01) | DRG 201 ==
LOC: JER 02:36 → JERBED 05:41 → JICU 09:53 → J4W 13:15
PROVIDERS: ADMIT Internal Medicine; ATTEND Internal Medicine
DX: I48.0 Paroxysmal atrial fibrillation (principal); I42.9 Cardiomyopathy, unspecified; R00.2 Palpitations; I45.6 Pre-excitation syndrome; E78.5 Hyperlipidemia, unspecified; I51.89 Other ill-defined heart diseases; I10 Essential (primary) hypertension; R00.1 Bradycardia, unspecified; E66.3 Overweight; Z68.28 Body mass index [BMI] 28.0-28.9, adult
CPT/HCPCS: 36415; 71045-TC-FY; 80048; 80053; 82550; 83735; 84100; 84439; 84443; 84480; 84484; 85025; 93005; 93010; 99285-25